=== PATIENT | male | born 1955 | race Caucasian/White ===

== ENCOUNTER 2020-08-04 08:17 | Outpatient (REF) | payer MEDICARE, SELFPAY ==
[2020-08-04 11:47] LABS: Estimated Average Glucose 103 mg/dL; Hemoglobin A1c % 5.2 %
== END 2020-08-04 08:18 | disposition home or self-care (01) ==
LOC: HO.MANLDS 08:17
PROVIDERS: PCP Internal Medicine; Visit Provider Internal Medicine
DX: R73.01 Impaired fasting glucose (principal)
CPT/HCPCS: 83036

== ENCOUNTER 2021-08-10 12:02 | Outpatient (REF) | payer MEDICARE, SELFPAY ==
[2021-08-10 15:11] LABS: CDiff Gene PCR NEGATIVE (Negative)
== END 2021-08-10 12:03 | disposition home or self-care (01) ==
LOC: HO.MANLNP 12:02
PROVIDERS: PCP Physician Assistant; Visit Provider Physician Assistant
DX: R19.7 Diarrhea, unspecified (principal)
CPT/HCPCS: 36415; 87493

== ENCOUNTER 2021-09-26 09:01 | Outpatient (REF) | payer MEDICARE, SELFPAY ==
[2021-09-26 10:51] LABS: Hematocrit 42.3 % (42.0-52.0); Hemoglobin 14.6 g/dl (14.0-18.0); Mean Corpuscular HGB Conc 34.5 g/dl (31.0-36.0); Mean Corpuscular Hemoglobin 31.7 pg (27.0-33.0); Mean Platelet Volume 9.5 fL (9.4-12.4); Platelet Count 198 X10*3/uL (160-400); Red Cell Distribution Width 11.8 % (11.0-16.0); White Blood Count 5.1 X10*3/uL (4.8-10.8)
[2021-09-26 11:01] LABS: Alanine Aminotransferase 43 U/L (0-40); Albumin Level 4.6 g/dL (3.5-5.0); Alkaline Phosphatase 62 U/L (39-117); Anion Gap 11 (12-20); Aspartate Amino Transferase 29 U/L (5-37); Bilirubin Total 0.5 mg/dL (0.0-1.0); Blood Urea Nitrogen 11 mg/dL (9-16); Calcium 9.5 mg/dL (8.4-10.2); Carbon Dioxide 31 mmol/L (22-29); Chloride 100 mmol/L (96-108); Cholesterol 181 mg/dL; Estimated Glomerular Filt Rate > 60; Glucose Fasting 116 mg/dL (60-99); HDL Cholesterol 45 mg/dL; LDL Cholesterol Calculated 109 mg/dl; Potassium 3.8 mmol/L (3.3-5.1); Sodium 138 mmol/L (135-145); Total Protein 7.2 g/dL (6.5-8.0); Triglycerides 138 mg/dL
== END 2021-09-26 09:02 | disposition home or self-care (01) ==
LOC: HO.MANLDS 09:01
PROVIDERS: PCP Internal Medicine; Visit Provider Internal Medicine
DX: E87.1 Hypo-osmolality and hyponatremia (principal); I10 Essential (primary) hypertension
CPT/HCPCS: 36415; 80053; 80061; 85027

== ENCOUNTER 2024-04-09 07:56 | Outpatient (REF) | payer MEDICARE, SELFPAY ==
[2024-04-09 13:02] LABS: MANUAL DIFF FLAG NO
[2024-04-09 13:25] LABS: Basophils Absolute Auto 0.1 X10*3/uL (0.0-0.2); Basophils Percent Auto 1.1 % (0-2); Eosinophils Absolute Auto 0.3 X10*3/uL (0.0-0.4); Eosinophils Percent Auto 6.2 % (0-4); Hematocrit 41.5 % (42.0-52.0); Hemoglobin 14.9 g/dl (14.0-18.0); Imm Gran Abs Auto 0.05 X10*3/uL (0.00-0.03); Imm Gran Pct Auto 1.1 % (0.0-0.4); Lymphocytes Absolute Auto 1.1 X10*3/uL (1.2-4.9); Lymphocytes Percent Auto 25.9 % (20-40); Mean Corpuscular HGB Conc 35.9 g/dl (31.0-36.0); Mean Corpuscular Hemoglobin 33.9 pg (27.0-33.0); Mean Corpuscular Volume 94.5 fL (80.0-98.0); Mean Platelet Volume 9.5 fL (9.4-12.4); Monocytes Absolute Auto 0.5 X10*3/uL (0.1-1.2); Neutrophils Absolute Auto 2.4 x10*3/uL (2.0-8.3); Neutrophils Percent Auto 54.7 % (45-73); Platelet Count 191 X10*3/uL (160-400); Red Blood Count 4.39 X10*6/uL (4.60-5.80); Red Cell Distribution Width 12.4 % (11.0-16.0); White Blood Count 4.4 X10*3/uL (4.8-10.8)
[2024-04-09 14:09] LABS: Alanine Aminotransferase 45 U/L (0-40); Albumin Level 4.8 g/dL (3.5-5.0); Alkaline Phosphatase 59 U/L (39-117); Anion Gap 14 (12-20); Aspartate Amino Transferase 38 U/L (5-37); Bilirubin Total 0.9 mg/dL (0.0-1.0); Blood Urea Nitrogen 13 mg/dL (9-16); Calcium 9.7 mg/dL (8.4-10.2); Carbon Dioxide 27 mmol/L (22-29); Chloride 102 mmol/L (96-108); Estimated Glomerular Filt Rate > 60; Ferritin 239 ng/mL (20-250); Glucose Random 95 mg/dL (60-115); Iron 182 mcg/dL (45-160); Magnesium 2.3 mg/dL (1.6-2.6); Percent Iron Saturation 57 % (15-50); Potassium 3.9 mmol/L (3.3-5.1); Sodium 139 mmol/L (135-145); Total Iron Binding Capacity 320 mcg/dL (228-428); Total Protein 7.3 g/dL (6.5-8.0); Unsaturated Iron Binding 138 ug/dL; Vitamin D 25-OH Total 54.8 ng/mL (>30)
[2024-04-09 14:34] LABS: Folate 10.6 ng/mL (> or = 4.0); Vitamin B12 462 pg/mL (200-900)
== END 2024-04-09 07:57 | disposition home or self-care (01) ==
LOC: HO.MANLDS 07:56
PROVIDERS: Visit Provider Physician Assistant
DX: R25.2 Cramp and spasm (principal)
CPT/HCPCS: 36415; 80053; 82306; 82607; 82728; 82746; 83540; 83735; 85025

== ENCOUNTER 2024-04-23 09:02 | Outpatient (REF) | payer MEDICARE, SELFPAY ==
[2024-04-23 13:21] LABS: MANUAL DIFF FLAG NO
[2024-04-23 13:30] LABS: Basophils Percent Auto 0.5 % (0-2); Eosinophils Absolute Auto 0.3 X10*3/uL (0.0-0.4); Eosinophils Percent Auto 4.6 % (0-4); Hematocrit 40.4 % (42.0-52.0); Hemoglobin 14.6 g/dl (14.0-18.0); Imm Gran Abs Auto 0.07 X10*3/uL (0.00-0.03); Imm Gran Pct Auto 1.2 % (0.0-0.4); Lymphocytes Absolute Auto 0.8 X10*3/uL (1.2-4.9); Lymphocytes Percent Auto 13.2 % (20-40); Mean Corpuscular HGB Conc 36.1 g/dl (31.0-36.0); Mean Platelet Volume 9.6 fL (9.4-12.4); Monocytes Absolute Auto 0.6 X10*3/uL (0.1-1.2); Monocytes Percent Auto 10.4 % (2-11); Neutrophils Absolute Auto 4.3 x10*3/uL (2.0-8.3); Neutrophils Percent Auto 70.1 % (45-73); Platelet Count 173 X10*3/uL (160-400); Red Cell Distribution Width 12.2 % (11.0-16.0); White Blood Count 6.1 X10*3/uL (4.8-10.8)
[2024-04-23 14:37] LABS: Iron 142 mcg/dL (45-160); Percent Iron Saturation 47 % (15-50); Total Iron Binding Capacity 305 mcg/dL (228-428); Unsaturated Iron Binding 163 ug/dL
[2024-04-23 14:42] LABS: Ferritin 210 ng/mL (20-250)
== END 2024-04-23 09:03 | disposition home or self-care (01) ==
LOC: HO.MANLDS 09:02
PROVIDERS: Visit Provider Physician Assistant
DX: E83.119 Hemochromatosis, unspecified (principal)
CPT/HCPCS: 36415; 82728; 83540; 85025

== ENCOUNTER 2024-05-19 15:47 | Outpatient (REF) | payer MEDICARE, SELFPAY ==
[2024-05-24 15:13] LABS: Testosterone, Free 37.6 pg/mL (35.0-155.0); Testosterone, Total 261 ng/dL (250-1100)
== END 2024-05-19 15:48 | disposition home or self-care (01) ==
LOC: HO.MANLDS 15:47
PROVIDERS: Visit Provider Internal Medicine
DX: F52.21 Male erectile disorder (principal)
CPT/HCPCS: 36415; 84402; 84403

== ENCOUNTER 2024-07-01 09:17 | Outpatient (REF) | payer MEDICARE, SELFPAY ==
[2024-07-06 00:14] LABS: Testosterone, Total 201 ng/dL (250-1100)
== END 2024-07-01 09:18 | disposition home or self-care (01) ==
LOC: HO.MANLDS 09:17
PROVIDERS: Visit Provider Internal Medicine
DX: R89.1 Abnormal level of hormones in specimens from other organs, systems and tissues (principal)
CPT/HCPCS: 36415; 84403

== ENCOUNTER 2025-04-17 08:53 | Outpatient (REF) | payer MEDICARE, SELFPAY ==
--- OUTSIDE RECORDS SUMMARY | 2025-04-17 08:57 | XMS_ITS | Data Portability ---
Author Organization [place] [facility], [facility] Address [address] [place] [address] Assessment No assessment recorded. Plan of Treatment Reminders Order Date Submit Date Provider Last Modified By Organization Details Last Modified Time Details Appointments NEW PATIENT 15 2024 10:15A M Keanu Deras MD Not available Not available Not available Lab None recorded . Referral None recorded . Procedures None recorded . Surgeries None recorded . Imaging None recorded . Medication Orders None recorded . Patient TargetsNo targets recorded. Patient Instructions Encounter Date Encounter Id Patient Instructions Last Modified By Organization Details Last Modified Time 02/15/2024 [id number] hip bursitis: care instructions Not available 02/15/2024 10:02:47 hip bursitis: exercises Not available 02/15/2024 10:02:47 Reason for Referral None Reported. Results Created Date Observation Date Name Description Value Unit Range Abnormal Flag Note LastModifiedBy Organization Detail LastModifiedTime 12/20/1912/21/2023 CBC/D /PLT W/ REFLE X IZABELA TIN WBC 6.1 x10e3 /uL 3.4-10 .8 Not Available [facility] ([facility]) [address] [place], [address], 12/21/2023 20:06:38 12/20/19 24 12/21/2023 CBC/D /PLT W/ REFLE X IZABELA TIN RBC 4.65 x10e6 /uL 4.14-5 .80 Not Available [facility] ([facility]) [address] [place], [address], 12/21/2023 20:06:38 12/20/19 24 12/21/2023 CBC/D /PLT W/ REFLE X IZABELA TIN hemoglobin 15.3 g/dL 13.0-1 7.7 Not Available [facility] ([facility]) [address] [facility], [place], [address], 12/21/2023 20:06:38 12/20/19 24 12/21/2023 CBC/D /PLT W/ REFLE X IZABELA TIN hematocrit 43.9 % 37.5-5 1.0 Not Available [facility] ([facility]) [address] [facility], [place], [address], 12/21/2023 20:06:38 12/20/19 24 12/21/2023 CBC/D /PLT W/ REFLE X IZABELA TIN MCV 94 fL 79-97 Not Available [facility] ([facility]) [address] [facility], [place], [address], 12/21/2023 20:06:38 12/20/19 24 12/21/2023 CBC/D /PLT W/ REFLE X IZABELA TIN MCH 32.9 pg 26.6-3 3.0 Not Available [facility] ([facility]) [address] [facility], [place], [address], 12/21/2023 20:06:38 12/20/19 24 12/21/2023 CBC/D /PLT W/ REFLE X IZABELA TIN MCHC 34.9 g/dL 31.5-3 5.7 Not Available [facility] ([facility]) [address] [facility], [place], [address], 12/21/2023 20:06:38 12/20/19 24 12/21/2023 CBC/D /PLT W/ REFLE X IZABELA TIN RDW 11.9 % 11.6-1 5.4 Not Available [facility] ([facility]) [address] [place], [address], 12/21/2023 20:06:38 12/20/19 24 12/21/2023 CBC/D /PLT W/ REFLE X IZABELA TIN platelets 195 x10e3 /uL 150-45 0 Not Available [facility] ([facility]) [address] [facility], [place], [address], 12/21/2023 20:06:38 12/20/19 24 12/21/2023 CBC/D /PLT W/ REFLE X IZABELA TIN neutrophils 64 % not estab. Not Available [facility] ([facility]) [address] [facility], [place], [address], 12/21/2023 20:06:38 12/20/19 24 12/21/2023 CBC/D /PLT W/ REFLE X IZABELA TIN lymphs 19 % not estab. Not Available [facility] ([facility]) [address] [facility], [place], [address], 12/21/2023 20:06:38 12/20/19 24 12/21/2023 CBC/D /PLT W/ REFLE X IZABELA TIN monocytes 9 % not estab. Not Available [facility] ([facility]) [address] [facility], [place], [address], 12/21/2023 20:06:38 12/20/19 24 12/21/2023 CBC/D /PLT W/ REFLE X IZABELA TIN eos 6 % not estab. Not Available [facility] ([facility]) [address] [facility], [place], [address], 12/21/2023 20:06:38 12/20/19 24 12/21/2023 CBC/D /PLT W/ REFLE X IZABELA TIN basos 1 % not estab. Not Available [facility] ([facility]) [address] [facility], [place], [address], 12/21/2023 20:06:38 12/20/19 24 12/21/2023 CBC/D /PLT W/ REFLE X IZABELA TIN immature cells CORE FILER Not Available [facility] ([facility]) [address] [facility], [place], [address], 12/21/2023 20:06:38 12/20/19 24 12/21/2023 CBC/D /PLT W/ REFLE X IZABELA TIN neutrophils (absolute) 4.0 x10e3 /uL 1.4-7. 0 Not Available [facility] ([facility]) [address] [facility], [place], [address], 12/21/2023 20:06:38 12/20/19 24 12/21/2023 CBC/D /PLT W/ REFLE X IZABELA TIN lymphs (absolute) 1.2 x10e3 /uL 0.7-3. 1 Not Available [facility] ([facility]) [address] [place], [address], 12/21/2023 20:06:38 12/20/19 24 12/21/2023 CBC/D /PLT W/ REFLE X IZABELA TIN monocytes(ab solute) 0.6 x10e3 /uL 0.1-0. 9 Not Available [facility] ([facility]) [address] [facility], [place], [address], 12/21/2023 20:06:38 12/20/19 24 12/21/2023 CBC/D /PLT W/ REFLE X IZABELA TIN eos (absolute) 0.3 x10e3 /uL 0.0-0. 4 Not Available [facility] ([facility]) [address] [place], [address], 12/21/2023 20:06:38 12/20/19 24 12/21/2023 CBC/D /PLT W/ REFLE X IZABELA TIN baso (absolute) 0.0 x10e3 /uL 0.0-0. 2 Not Available [facility] ([facility]) [address] [place], [address], 12/21/2023 20:06:38 12/20/19 24 12/21/2023 CBC/D /PLT W/ REFLE X IZABELA TIN immature granulocytes 1 % not estab. Not Available [facility] ([facility]) [address] [facility], [place], [address], 12/21/2023 20:06:38 12/20/19 24 12/21/2023 CBC/D /PLT W/ REFLE X IZABELA TIN immature grans (abs) 0.0 x10e3 /uL 0.0-0. 1 Not Available [facility] ([facility]) [address] [facility], [place], [address], 12/21/2023 20:06:38 12/20/19 24 12/21/2023 CBC/D /PLT W/ REFLE X IZABELA TIN NRBC CORE FILER Not Available [facility] ([facility]) [address] [facility], [place], [address], 12/21/2023 20:06:38 12/20/19 24 12/21/2023 CBC/D /PLT W/ REFLE X IZABELA TIN hematology comments: CORE FILER Not Available [facility] ([facility]) [address] [facility], [place], [address], 12/21/2023 20:06:38 12/20/19 24 12/21/2023 SEDIM ENTAT ION RATE- WESTE RGREN sedimentatio n rate-westerg anna 6 mm/HR 0-30 Not Available [facility] ([facility]) [address] [facility], [place], [address], 12/21/2023 20:06:38 12/20/19 24 12/21/2023 C-JAMES CTIVE PROTE IN, QUANT C-reactive protein, quant 4 mg/L 0-10 Not Available [facility] ([facility]) [address] [facility], [place], [address], 12/21/2023 20:06:39 05/30/20 24 09/17/2020 imagi ng/di agnos tic resul t No observ ation record ed. [email or web address] Not Available 05/03 06:35:18 05/30/20 24 11/15/2020 imagi ng/di agnos tic resul t No observ ation record ed. [email or web address] Not Available 05/03 06:35:23 Result Notes None recorded. 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 Status: 'A'; Not Available [facility] 4 11:28:29 Knee joint prosthesi s present 585671539824 Active 2019 Problem Code: Z96.652; Problem Code Type: ICD-10; Status: 'A'; Not Available [facility] 4 11:28:29 Idiopathi c osteoarth ritis 362269726 Active 2019 Problem Code: M17.11; Problem Code Type: ICD-10; Status: 'A'; Not Available [facility] 4 11:28:29 Instabili ty of right shoulder joint 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 Procedures Surgical History Date Name Laterality Status Provider Name and Address Organization Details Recorded Time 4 Hip Kenalog 1cc Injection, L/R completed Layla Montoya PA-C [address] [place] [address], [phone], [facility] 02/16/2024 13:46:42 4 Hip Kenalog 1cc Injection, L/R completed Layla Montoya PA-C [address], [place], [address], [facility] 01/03/2024 17:52:44 Imaging Results None recorded. Procedure Notes None recorded. Medical Equipment None Reported. Allergies No known drug allergies Medications Name Sig Start Date Stop Date Status Note LastModified by Organization Details LastModified Time trazodone 50 mg tablet TAKE 1 TABLET BY MOUTH EVERY DAY AT BEDTIME active Not Available Not Available No t Available lisinopril 20 mg-hydrochl orothiazide 12.5 mg tablet TAKE 2 TABLETS BY MOUTH EVERY DAY active Not Available Not Available No t Available atenolol 100 mg tablet TAKE 1 TABLET BY MOUTH EVERY DAY active Not Available Not Available No t Available famotidine 40 mg tablet TAKE 1 TABLET BY MOUTH EVERYDAY AT BEDTIME active Not Available Not Available No t Available sertraline 100 mg tablet TAKE 1 TABLET BY MOUTH EVERY DAY active Not Available Not Available No t Available clopidogrel 75 mg tablet TAKE 1 TABLET BY MOUTH EVERY DAY active Not Available Not Available No t Available amlodipine 10 mg tablet TAKE 1 TABLET BY MOUTH EVERY DAY active Not Available Not Available No t Available pseudoephed rine-guaife nesin ER 80-700 mg tablet,exte nded release 1 tablet every 4-6 hours as needed for pain 1 tablet 1/2 hour prior to exercises .DO NOT DRIVE WHILE ON THIS MEDICATIO N 2011 active Statu s: 'Curr ent'; Not Available Not Available Not Available rosuvastati n 20 mg tablet TAKE 1 TABLET BY MOUTH EVERYDAY AT BEDTIME active Not Available Not Available No t Available rosuvastati n 40 mg tablet TAKE 1 TABLET BY MOUTH DAILY active Not Available Not Available No t Available oxycodone HCl-oxycodo ne-ASA TAKE 1-2 TABS Q 4-6 HRS PRN PAIN 06/04 completed Statu s: 'Disc ontin ued'; Not Available Not Available Not Available Vitals Date Recorded Body height Body mass index (BMI) Body weight Provider Name and Address Organization Details Last Updated DateTime 01/03/2024 175.26 cm 34 kg/m2 427108.25 g dameon ruiz [facility] 01/03/2024 10:19:02 Date Recorded Body height Body mass index (BMI) Body weight Provider Name and Address Organization Details Last Updated DateTime 02/15/2024 175.26 cm 34 kg/m2 453141.25 g ALFREDO MORENO [facility] 02/15/2024 09:39:55 Social History None recorded. Functional Status None recorded. Mental Status None recorded. Family History Nothing Reported. Medical History No medical history recorded. Past Encounters Encounter ID Performer Location Encounter Start Date Encounter Closed Date Diagnosis/Indication Diagnosis SNOMED-CT Code Diagnosis ICD10 Code Diagnosis Note [id number] Layla Montoya PA-C [address] [place] [address] 01/03/2024 09:38:05 01/29/2024 20:37:38 Trochanteric bursitis of right hip [id number] 17288 M70.61 Hip joint prosthesis present 163255529 Z96.011 [id number] Layla Montoya PA-C [facility] [address] [place] [address] 02/15/2024 09:10:07 03/07/2024 14:14:47 Trochanteric bursitis of right hip 8415346575 34976 M70.61 Hip joint prosthesis present 206025982 Z96.641 Health Concerns Section Related Observation LastModified by Organization Detai ls LastModified Time None Recorded Concern Status LastModified by Organization Details LastModified Time None Recorded Advance Directives Directive None Recorded Payers Insurance Date Sequence Insurance Name Policy Number Policy Phipps Covered Member ID Phipps Member ID Guarantor Name 05/19/2024 1 [place] (MEDICARE REPLACEMENT PPO) [id number] Lorenzo Hunter Christopher [id number] Lorenzo White Notes Date Note Type Note Provider Name and Address Organization Details Recorded Time 01/03/2024 text/html I am seeing the patient today under the supervision of Dr. Tate who was available but who did not see the patient. HPI: Lorenzo presents to the office today in order to receive a cortisone injection for his right hip. He was last seen by one of my colleagues back in October. He is status post right total hip replacement by Dr. Jett in 2011. He describes his pain as being over the lateral hip. Symptoms are most significant with prolonged sitting, getting up from a seated position, and climbing stairs. Deneis any groin pain. Past family, medical, social history and review of systems have been reviewed and updated on the medical history sheet saved to the patient's chart. Review of systems is negative except as noted above and/or on the medical history sheet. Examination: The patient is well appearing and in no apparent distress. Alert and oriented x3. Right hip exam demonstrates skin intact with normal musculature and well-healed surgical scar. There is no erythema or lesions. He has tenderness to palpation overlying the right greater trochanter. No pain with passive motion of the hip. No pain against resisted hip flexion, abduction, adduction. Neurovascularly intact. Peripheral vascular, lymphatic examination, skin, neurological, coordination, sensation are within normal limits unless otherwise noted above. X-rays performed previously have been reviewed. Impression: Right hip greater trochanteric bursitis status post right total hip arthroplasty 2011 Plan: The patient was thoroughly counseled today regarding their hip condition, its natural history, and the treatment options including physical therapy, medication, and a corticosteroid injection. The patient is interested in receiving an injection with corticosteroid. Right trochanteric region was prepped sterilely, and injection was administered at the point of maximum tenderness utilizing 40mg of Kenalog and 4cc of 0.25% Marcaine. The patient tolerated the procedure well. Post-injection precautions were discussed. Physical therapy was discussed. I will see him back in the office in 6 weeks for a recheck. All questions answered. Layla Montoya PA-C [address] [place] [address] [address], [place], [address], [facility] [place] [facility] 01/03/2024 17:53:27 02/15/2024 text/html I am seeing the patient today under the supervision of Dr. Thakkar who was available but who did not see the patient.HPI: Lorenzo presents to the office today for a recheck his right hip. He was seen by myself approximately 6 weeks ago. He is status post right total hip replacement by Dr. Jett in 2011. He describes his pain as being over the lateral hip. Symptoms are most significant with prolonged sitting, getting up from a seated position, and climbing stairs. Ronald any groin pain. He received a cortisone injection at his last visit for bursitis which provided him with relief but did not completely eliminate his symptoms. Past family, medical, social history and review of systems have been reviewed and updated on the medical history sheet saved to the patient's chart. Review of systems is negative except as noted above and/or on the medical history sheet.Examination: The patient is well appearing and in no apparent distress. Alert and oriented x3. Right hip exam demonstrates skin intact with normal musculature and well-healed surgical scar. There is no erythema or lesions. He has tenderness to palpation overlying the right greater trochanter. No pain with passive motion of the hip. No pain against resisted hip flexion, abduction, adduction. Neurovascularly intact. Peripheral vascular, lymphatic examination, skin, neurological, coordination, sensation are within normal limits unless otherwise noted above.X-rays performed previously have been reviewed.Impression: Right hip greater trochanteric bursitis status post right total hip arthroplasty 2011Plan: The patient was thoroughly counseled today regarding their hip condition, its natural history, and the treatment options including physical therapy, medication, and a corticosteroid injection. The patient is interested in receiving an injection with corticosteroid. Right trochanteric region was prepped sterilely, and injection was administered at the point of maximum tenderness utilizing 40mg of Kenalog and 4cc of 0.25% Marcaine. The patient tolerated the procedure well. Post-injection precautions were discussed. He prefers to hold off on formal physical therapy. A home stretching program has been provided. I will see him back in the office in 3 months for repeat injection if needed. All questions answered.+ KRISTEN Melendez-Nazanin [address] [facility] [address], [place], [address], [facility] [place] [facility] 02/16/2024 13:47:43
--- OUTSIDE RECORDS SUMMARY | 2025-04-17 08:57 | XMS_ITS | Encounter Summary ---
Author Organization [facility] [place] Address [address] [place] [address] [place] [address] Phone Care Team Providers Care Production Line Operator Name Role Phone Van Mckeon Primary Care Provider [phone] Encounter Details Date Type Department Care Team (Late st Contact Info) Description 08/28/2017 Transcribe Orders [facility] [address] [place] [address] [id number] Tashi Hong MD [address] [place] [phone] Encounter for hydration prior to CT scan (Primary Dx) Social History Tobacco Use Types Packs/Day Years Used Date Smoking Tobacco: Never Assessed Sex and Gender Information Value Date Recorded Sex Assigned at Not on file Legal Sex Male 9:54 PM EDT Gender Identity Not on file Sexual Orientation Not on file documented as of this encounter Plan of Treatment Not on file documented as of this encounter Procedures Procedure Name Priority Date/Time Associated Diagnosis Comments CREATININE/EGFR Routine 08/28/2017 9:22 AM EST Encounter for hydration prior to CT scan BUN Routine 08/28/2017 9:22 AM EST Encounter for hydration prior to CT scan documented in this encounter Results * Creatinine/eGFR (08/28/2017 9:22 AM EST) CREATININE 0.70 0.5 - 1.5 mg/dL [facility] EGFR >60 >60 mL/min/1.7 3m2 [facility] Comment:Abnormal if <60. If patient is -Greek, multiply the result by 1.21. Blood 08/28/2017 9:22 AM EST 08/28/2017 9:26 AM EST us Tashi Hong MD LAB BLOOD ORDERABLES Sheila l Result Performing Organization Address City/[facility]/ZIP Co de Phone Number [address] [address] * BUN (08/28/2017 9:22 AM EST) BUN 11 6 - 19 mg/dL [facility] Blood 08/28/2017 9:22 AM EST 08/28/2017 9:26 AM EST Tashi Hong MD LAB BLOOD ORDERABLES Sheila l Result Performing Organization Address [facility] Co de Phone Number [address] [address] documented in this encounter Visit Diagnoses Diagnosis Encounter for hydration prior to CT scan- Primary documented in this encounter Additional Health Concerns Infection Onset Date Last Indicated Resolved Time CoV-Risk 10/13/2024 10/13/2024 10/24/2024 1:24 AM EST documented as of this encounter Care Teams Production Line Operator Relationship Specialty Start Date End Date Van Mckeon DO [email or web address] PCP - General 07/16/17 documented as of this encounter Additional Source Comments The information contained in this document represents components of the legal health record. It is not the complete legal health record.[facility]
[2025-04-17 09:12] LABS: MANUAL DIFF FLAG NO
[2025-04-17 10:28] LABS: Hematocrit 41.1 % (42.0-52.0); Hemoglobin 14.9 g/dl (14.0-18.0); Imm Gran Abs Auto 0.05 X10*3/uL (0.00-0.03); Imm Gran Pct Auto 0.8 % (0.0-0.4); Lymphocytes Absolute Auto 0.9 X10*3/uL (1.2-4.9); Mean Corpuscular HGB Conc 36.3 g/dl (31.0-36.0); Mean Corpuscular Hemoglobin 32.6 pg (27.0-33.0); Mean Corpuscular Volume 89.9 fL (80.0-98.0); NRBC Abs Auto 0.000 X10*3/uL (0.0-0.012); NRBC Pct Auto 0.0 /100WBC (0.0-0.2); Platelet Count 183 X10*3/uL (160-400); Red Blood Count 4.57 X10*6/uL (4.60-5.80); White Blood Count 6.4 X10*3/uL (4.8-10.8)
[2025-04-17 11:21] LABS: Alanine Aminotransferase 55 U/L (0-40); Albumin Level 5.1 g/dL (3.5-5.0); Alkaline Phosphatase 68 U/L (39-117); Anion Gap 13 (12-20); Aspartate Amino Transferase 44 U/L (5-37); Blood Urea Nitrogen 14 mg/dL (9-16); Calcium 9.8 mg/dL (8.4-10.2); Carbon Dioxide 28 mmol/L (22-29); Chloride 102 mmol/L (96-108); Cholesterol 116 mg/dL (<200); Estimated Glomerular Filt Rate > 60; HDL Cholesterol 44 mg/dL (>40); Potassium 4.0 mmol/L (3.3-5.1); Sodium 139 mmol/L (135-145); Total Protein 7.5 g/dL (6.5-8.0); Triglycerides 115 mg/dL (<150)
[2025-04-17 11:23] LABS: Prostate Specific Antigen 0.54 ng/mL (<0.05-4.0)
== END 2025-04-17 08:54 | disposition home or self-care (01) ==
LOC: HO.LAB 08:53
PROVIDERS: PCP Internal Medicine; Visit Provider Internal Medicine
DX: E78.00 Pure hypercholesterolemia, unspecified (principal)
CPT/HCPCS: 36415; 80053; 80061; 84153; 85025

== ENCOUNTER 2025-04-29 08:41 | Outpatient (REF) | payer MEDICARE, SELFPAY ==
--- OUTSIDE RECORDS SUMMARY | 2025-04-29 08:57 | XMS_ITS | Encounter Summary ---
Author Organization [facility] Address [address] [place] [address] [place] [address] Phone Care Team Providers Care Sales Administration Specialist Name Role Phone Van Mckeon Primary Care Provider [phone] Encounter Details Date Type Department Care Team (Late st Contact Info) Description 08/28/2017 Transcribe Orders [facility] [address] [place] [address] [phone] Tashi Hong MD [address] [place] [phone] Encounter for hydration prior to CT [...] EST) CREATININE 0.70 0.5 - 1.5 mg/dL [facility] EGFR >60 >60 mL/min/1.7 3m2 [facility] Comment:Abnormal if <60. If patient is -Azerbaijani, multiply the result by 1.21. Blood 08/28/2017 9:22 AM EST 08/28/2017 9:26 AM EST us Tashi Hong MD LAB BLOOD ORDERABLES Sheila l Result Performing Organization Address City/[facility]/ZIP Co de Phone Number [address] [address] * BUN (08/28/2017 9:22 AM EST) BUN 11 6 - 19 mg/dL [facility] Blood 08/28/2017 9:22 AM EST 08/28/2017 9:26 AM EST Tashi Hong MD LAB BLOOD ORDERABLES Sheila l Result Performing Organization Address [facility] Co de Phone Number [address] [address] documented in this encounter Visit Diagnoses Diagnosis Encounter for hydration prior to CT scan- Primary documented in this encounter Additional Health Concerns Infection Onset Date Last Indicated Resolved Time CoV-Risk 10/13/2024 10/13/2024 10/24/2024 1:24 AM EST documented as of this encounter Care Teams Sales Administration Specialist Relationship Specialty Start Date End Date Van Mckeon DO [email or web address] PCP - General 07/16/17 documented as of this encounter Additional Source Comments The information contained in this document represents components of the legal health record. It is not the complete legal health record.[facility]
== END 2025-04-29 08:42 | disposition home or self-care (01) ==
LOC: HO.MANLDS 08:41
PROVIDERS: Visit Provider Internal Medicine
DX: R89.1 Abnormal level of hormones in specimens from other organs, systems and tissues (principal)
CPT/HCPCS: 36415; 84403

== ENCOUNTER 2025-06-09 09:42 | Outpatient (REF) | payer MEDICARE, SELFPAY ==
--- OUTSIDE RECORDS SUMMARY | 2024-10-13 12:59 | XMS_ITS | Encounter Summary ---
Author Organization [facility] Address [address] [employer] [facility] [address] [place] [phone] Phone Care Team Providers Care Financial Planning Analyst Name Role Phone Van Mckeon Gurpreet PEREIRA Primary Care Provider [phone] Encounter Details Date Type Department Care Team (Late st Contact Info) Description 10/13/2024 11:59 AM [facility] Hospital Encounter [facility] [address] [place] [phone] Malika Bonilla CNP [address] [place] [address] [email or web address] Social History Tobacco Use Types Packs/Day Years [...] clinician's provided indication for this examination in [facility]: Cough; X 5 -6 weeks COMPARISON: None FINDINGS: Devices/Tubes/Lines: None. Lungs: Low lung volumes. No focal consolidation or pulmonary edema. Pleura: No pleural effusion or pneumothorax. Heart/Mediastinum: Mild cardiomegaly. Aortic arch calcification. Bones/Soft Tissues: Mild thoracic spine degenerative changes. Procedure Note Luis Angel Mayers MD, PhD - 10/13/2024 XR CHEST PA AND LATERAL 2 VIEWS Referring clinician's provided indication for this examination in [facility]:Cough; X 5 -6 weeks COMPARISON: None FINDINGS: Devices/Tubes/Lines: None. Lungs: Low lung volumes. No focal consolidation or pulmonary edema. Pleura: No pleural effusion or pneumothorax. Heart/Mediastinum: Mild cardiomegaly. Aortic arch calcification. Bones/Soft Tissues: Mild thoracic spine degenerative changes. IMPRESSION: No acute abnormality. us Malika Bonilla HEATING AND REFRIGERATION INSPECTOR IMG XR CHEST Final Resul t documented in this encounter Visit Diagnoses Not on filedocumented in this encounter Additional Health Concerns Infection Onset Date Last Indicated Resolved Time CoV-Risk 10/13/2024 10/13/2024 10/24/2024 1:24 AM EST documented as of this encounter Care Teams Financial Planning Analyst Relationship Specialty Start Date End Date Van Mckeon DO [email or web address] PCP - General 07/16/17 documented as of this encounter Additional Source Comments The information contained in this document represents components of the legal health record. It is not the complete legal health record.[facility]
--- OUTSIDE RECORDS SUMMARY | 2025-06-09 11:22 | XMS_ITS | Clinical Summary ---
Author Organization [facility] Address [address] [facility] [address] [place] [address] Phone Care Team Providers Care Industrial Design Engineer Name Role Phone Van Mckeon Primary Care Provider [phone] Allergies No known active allergies Medications Medication-Free Text Zolpidem Tartrate Active Medication-Free Text Ranitidine Active SIMVASTATIN ORAL Take 10 mg by mouth daily. Active OMEPRAZOLE ORAL Acti ve SERTRALINE HCL (SERTRALINE ORAL) Take 1 tablet by mouth daily. Active MELOXICAM ORAL Activ e amLODIPine (NORVASC) 10 MG tablet Take 1 tablet by mouth daily. Active amitriptyline (ELAVIL) 25 MG tablet Take 1 tablet by mouth nightly. 1 Active lisinopril-hydroC HLOROthiazide (PRINZIDE,ZESTORE TIC) 20-12.5 mg per tablet Take 2 tablets by mouth daily. 1 Active famotidine (PEPCID) 40 MG tablet Take 40 mg by mouth daily. Active therapeutic multivitamin tablet Take 1 tablet by mouth daily. Active omega-3 fatty acids-fish oil 340-1,000 mg Cap Take 1 capsule by mouth daily. Active aspirin 81 mg chewable tablet Take 81 mg by mouth daily. Active COQ10, UBIQUINOL, ORAL Take 1 tablet by mouth daily. Active clopidogrel (PLAVIX) 75 mg tablet Take 75 mg by mouth daily. Active rosuvastatin (CRESTOR) 40 MG tablet Take 40 mg by mouth daily. Active atenolol (TENORMIN) 100 MG tablet Take 100 mg by mouth daily. Active traZODone (DESYREL) 50 MG tablet Take 50 mg by mouth nightly at bedtime. 4 Active Active Problems Problem Noted Date Diagnosed Date Carotid bruit present 10/13/2024 Chronic lower back pain 10/13/2024 Eczema of hand 10/13/2024 GERD (gastroesophageal reflux disease) Obesity with body mass index 30 or greater 10/13 ARBEN on CPAP 10/13/2024 Right bundle branch block (RBBB) 10/13/2024 OA (osteoarthritis) 10/13/2024 Benign esophageal stricture 04/24/2018 Deep vein thrombosis (DVT) of iliofemoral vein 0 04/24/2018 Depressive disorder 04/24/2018 Degeneration of lumbar intervertebral disc 04/24 Esophagitis 04/24/2018 Hypercholesterolemia 04/24/2018 Hypertension 04/24/2018 DDD (degenerative disc disease), cervical 2017 Peripheral vascular disease 03/07/2018 Immunizations No known immunizations Social History Tobacco Use Types Packs/Day Years [...] on file Sexual Orientation Not on file Last Filed Vital Signs Vital Sign Reading Time Taken Comments Blood Pressure 165/85 10/13/2024 11:42 AM EST Pulse 62 10/13/2024 11:42 AM EST Temperature 36.7 C (98 F) 10/13/2024 11:42 AM EST Respiratory Rate 20 10/13/2024 11:42 AM EST Oxygen Saturation 97% 10/13/2024 11:42 AM EST Inhaled Oxygen Concentration - - Weight 99.8 kg (220 lb) 05/19/2020 8:55 AM EDT Height 172.7 cm (5' 8 ) 05/19/2020 8:55 AM EDT Body Mass Index 33.45 05/19/2020 8:55 AM EDT Plan of Treatment Health Maintenance Due Date Last Done Comments Adult Td,Tdap Booster 1956 LIPID PANEL 1956 POTASSIUM LEVEL 1956 DEPRESSION SCREENING 1968 SMOKING Hx and SMOKELESS TOBACCO SCREENING 1969 HEPATITIS C SCREENING 1974 COLOGUARD 2001 COLONOSCOPY 2001 COLORECTAL CANCER SCREENING 2001 FIT TEST 2001 FOBT 2001 SIGMOIDOSCOPY 2001 VIRTUAL COLONOSCOPY 2001 CREATININE LEVEL 08/28/2018 08/28/2017 ZOSTER VACCINES (2 of 2) 04/14/2019 02/17/2019 ABDOMINAL AORTIC ANEURYSM (AAA) SCREENING 2021 BLOOD PRESSURE 04/12/2025 10/13/2024 INFLUENZA VACCINE (#1) 2025 , 06/29/2023, 07/11/2022, Additional history exists COVID-19 VACCINE ( season) 2025 06/27/2024, 06/29/2023, 07/11/2022, Additional history exists PNEUMOCOCCAL VACCINES (50+ years) Completed 06/15/2023, 10/02/2018, 09/19/2017 RSV VACCINE Completed 06/15/2023 HEPATITIS A VACCINES Aged Out No long er eligible based on patient's age to complete this topic HIB VACCINES Aged Out No longer eligi ble based on patient's age to complete this topic MENINGOCOCCAL VACCINES (ACWY) Aged Out No longer eligible based on patient's age to complete this topic MENINGOCOCCAL VACCINES (B) Aged Out N o longer eligible based on patient's age to complete this topic Medical Devices Implanted Type Area Sheet Sorter Device Identifier Shelf Expiration Date Model / Serial / Lot Prosthetic Joint Prosthetic Joint Bilatera l: Hip Prosthetic Joint Prosthetic Joint Bilatera l: Knee Procedures Procedure Name Priority Date/Time Associated Diagnosis Comments CREATININE/EGFR Routine 08/28/2017 9:22 AM EST Encounter for hydration prior to CT scan from Last 3 Months or Most Recently Relevant to Health Maintenance Results * Creatinine/eGFR (08/28/2017 9:22 AM EST) CREATININE 0.70 0.5 - 1.5 mg/dL [facility] EGFR >60 >60 mL/min/1.7 3m2 [facility] Comment:Abnormal if <60. If patient is -[place], multiply the result by 1.21. Blood 08/28/2017 9:22 AM EST 08/28/2017 9:26 AM EST us Tashi Hong MD LAB BLOOD ORDERABLES Sheila macdonald Result Performing Organization Address City/State/[facility] Co de Phone Number [address] [address] from Last 3 Months or Most Recently Relevant to Health Maintenance Insurance MEDICARE PPO BLUE REPLACEMENT MEDICARE PPO BLUE REPLACEMENT MEDICARE PPO BLUE REPLACEMENT MEDICARE PPO BLUE REPLACEMENT MEDICARE PPO BLUE REPLACEMENT MEDICARE PPO BLUE REPLACEMENT MEDICARE PPO BLUE REPLACEMENT [place] MEDICARE PPO BLUE REPLACEMENT Care Teams Industrial Design Engineer Relationship Specialty Start Date End Date Van Mckeon DO [email or web address] PCP - General 07/16/17 Additional Source Comments The information contained in this document represents components of the legal health record. It is not the complete legal health record.[facility]
--- OUTSIDE RECORDS SUMMARY | 2025-06-09 11:22 | XMS_ITS | Encounter Summary ---
Author Organization [facility] Address [address] [address] Phone Care Team Providers Care Residential Finish Carpenter Name Role Phone Van Mckeon DO Primary Care Provider Reason for Referral * Physical Therapy (Routine) - Closed Specialty Diagnoses / Procedures Referred By Contac t Referred To Contact Physical Therapy Diagnoses Encounter for rehabilitation System, Provider Not In, PhD [id number] [place] [address] [address] [place] [address] Phone: tel: Referral ID Status Reason Start Date Expiration Date Visits Re quested Visits Authorized [id number] Closed 07/29/2018 09/30/2018 92 [phone] Encounter Details Date Type Department Care Team (Late st Contact Info) Description 06/27/2018 Transcribe Orders [facility] [address] [place] [address] Van Mckeon DO [address] [facility] [place] [address] [email or web address] Encounter for rehabilitation (Primary Dx) Social History Tobacco Use Types Packs/Day Years Used Date Smoking Tobacco: Never Assessed Sex and Gender Information Value Date Recorded Sex Assigned at Not on file Legal Sex Male 9:54 PM EDT Gender Identity Not on file Sexual Orientation Not on file documented as of this encounter Plan of Treatment Scheduled Referrals Name Type Priority Associated Diagnoses Orde r Schedule Ambulatory referral to [facility] Physical Therapy Outpatient Referral Routine Encounter for rehabilitation Ordered: 06/27/2018 documented as of this encounter Visit Diagnoses Diagnosis Encounter for rehabilitation- Primary documented in this encounter Additional Health Concerns Infection Onset Date Last Indicated Resolved Time CoV-Risk 10/13/2024 10/13/2024 10/24/2024 1:24 AM EST documented as of this encounter Care Teams Residential Finish Carpenter Relationship Specialty Start Date End Date Van Mckeon DO [email or web address] PCP - General 07/16/17 documented as of this encounter Additional Source Comments The information contained in this document represents components of the legal health record. It is not the complete legal health record.[facility]
--- OUTSIDE RECORDS SUMMARY | 2025-06-09 11:22 | XMS_ITS | Encounter Summary ---
Author Organization [facility] Address [address] [place] [address] [place] [address] Phone Care Team Providers Care Co Founder And President Name Role Phone Van Mckeon Primary Care Provider [phone] Encounter Details Date Type Department Care Team (Late st Contact Info) Description 08/28/2017 Transcribe Orders [facility] [address] [place] [address] [id number] Tashi Hong MD [address] [place] [phone] Encounter for hydration prior to CT [...] EST) CREATININE 0.70 0.5 - 1.5 mg/dL [facility] EGFR >60 >60 mL/min/1.7 3m2 [facility] Comment:Abnormal if <60. If patient is -Lao, multiply the result by 1.21. Blood 08/28/2017 9:22 AM EST 08/28/2017 9:26 AM EST us Tashi Hong MD LAB BLOOD ORDERABLES Sheila l Result Performing Organization Address City/[facility]/ZIP Co de Phone Number [address] [address] * BUN (08/28/2017 9:22 AM EST) BUN 11 6 - 19 mg/dL [facility] Blood 08/28/2017 9:22 AM EST 08/28/2017 9:26 AM EST Tashi Hong MD LAB BLOOD ORDERABLES Sheila l Result Performing Organization Address [facility] Co de Phone Number [address] [address] documented in this encounter Visit Diagnoses Diagnosis Encounter for hydration prior to CT scan- Primary documented in this encounter Additional Health Concerns Infection Onset Date Last Indicated Resolved Time CoV-Risk 10/13/2024 10/13/2024 10/24/2024 1:24 AM EST documented as of this encounter Care Teams Co Founder And President Relationship Specialty Start Date End Date Van Mckeon DO [email or web address] PCP - General 07/16/17 documented as of this encounter Additional Source Comments The information contained in this document represents components of the legal health record. It is not the complete legal health record.[facility]
--- OUTSIDE RECORDS SUMMARY | 2025-06-09 11:23 | XMS_ITS | Encounter Summary ---
Author Organization [facility] Address [address] [address] Phone Care Team Providers Care Biomedical Manager Name Role Phone Van Mckeon Gurpreet PEREIRA Primary Care Provider [phone] Reason for Referral * Physical Therapy (Routine) - Closed Specialty Diagnoses / Procedures Referred By Berhane t Referred To Contact Physical Therapy Diagnoses Encounter for rehabilitation System, Provider Not In, PhD [id number] [place] [address] Phone: tel: Referral ID Status Reason Start Date Expiration Date Visits Re quested Visits Authorized [id number] Closed 10/01/2017 09/30/2018 99 [phone] Encounter Details Date Type Department Care Team (Latest Contact Info) Description 08/16/2017 Transcribe Orders [facility] [address] [place] [phone] Ranjeet Jett MD [address] [place] [phone] Encounter for rehabilitation (Primary Dx) Social History [...] Diagnoses Orde r Schedule Ambulatory referral to [facility] Physical Therapy Outpatient Referral Routine Encounter for rehabilitation Ordered: 08/16/2017 documented as of this encounter Visit Diagnoses Diagnosis Encounter for rehabilitation- Primary documented in this encounter Additional Health Concerns Infection Onset Date Last Indicated Resolved Time CoV-Risk 10/13/2024 10/13/2024 10/24/2024 1:24 AM EST documented as of this encounter Care Teams Biomedical Manager Relationship Specialty Start Date End Date Van Mckeon DO [email or web address] PCP - General 07/16/17 documented as of this encounter Additional Source Comments The information contained in this document represents components of the legal health record. It is not the complete legal health record.[facility]
--- OUTSIDE RECORDS SUMMARY | 2025-06-09 11:23 | XMS_ITS | Encounter Summary ---
Author Organization [facility] Address [address] [place] [address] Phone Care Team Providers Care Quarry Worker Name Role Phone Van Mckeon DO Primary Care Provider [phone] Encounter Details Date Type Department Care Team (Late st Contact Info) Description 09/25/2017 Documentation [facility] [address] [place] [address] Gretchen Vang, PT [email or web address] Social History Tobacco Use Types Packs/Day Years Used Date Smoking Tobacco: Never Assessed Sex and Gender Information Value Date Recorded Sex Assigned at Not on file Legal Sex Male 9:54 PM EDT Gender Identity Not on file Sexual Orientation Not on file documented as of this encounter Plan of Treatment Not on file documented as of this encounter Visit Diagnoses Not on filedocumented in this encounter Additional Health Concerns Infection Onset Date Last Indicated Resolved Time CoV-Risk 10/13/2024 10/13/2024 10/24/2024 1:24 AM EST documented as of this encounter Care Teams Quarry Worker Relationship Specialty Start Date End Date Van Mckeon DO PCP - General 07/16/17 documented as of this encounter Additional Source Comments The information contained in this document represents components of the legal health record. It is not the complete legal health record.[facility]
--- OUTSIDE RECORDS SUMMARY | 2025-06-09 11:23 | XMS_ITS | Encounter Summary ---
Author Organization [facility] Address [address] [place] [address] Phone Care Team Providers Care Brand Coordinator Name Role Phone Van Mckeon DO Primary Care Provider [phone] Encounter Details Date Type Department Care Team (Latest Contact Info) Description 08/15/2021 Transcribe Orders Virtual Department [address] [place] [address] Gillian Vernon PA [address] [place] [address] [place] [address] Diarrhea, unspecified type (Primary Dx) Social History Tobacco Use Types Packs/Day Years Used Date Smoking Tobacco: Former Cigarettes Smokeless Tobacco: Never Comments:quit 30 yrs ago Alcohol Use Standard Drinks/Week Comments Yes 1 (1 standard drink = 0.6 oz pur e alcohol) daily Sex and Gender Information Value Date Recorded Sex Assigned at Not on file Legal Sex Male 9:54 PM EDT Gender Identity Not on file Sexual Orientation Not on file documented as of this encounter Plan of Treatment Not on file documented as of this encounter Visit Diagnoses Diagnosis Diarrhea, unspecified type- Primary documented in this encounter Additional Health Concerns Infection Onset Date Last Indicated Resolved Time CoV-Risk 10/13/2024 10/13/2024 10/24/2024 1:24 AM EST documented as of this encounter Care Teams Brand Coordinator Relationship Specialty Start Date End Date Van Mckeon DO PCP - General 07/16/17 documented as of this encounter Additional Source Comments The information contained in this document represents components of the legal health record. It is not the complete legal health record.[facility]
--- OUTSIDE RECORDS SUMMARY | 2025-06-09 11:23 | XMS_ITS | Encounter Summary ---
Author Organization [facility] Address [address] [facility] [address] [place] [address] Phone Care Team Providers Care Internet Programmer Name Role Phone Van Mckeon DO Primary Care Provider [phone] Encounter Details Date Type Department Care Team (Late st Contact Info) Description 05/21/2020 Procedure Pass [facility] Endoscopy Admitting Dept Virtual Department [address] [place] [address] Social History Tobacco Use Types Packs/Day Years [...] documented as of this encounter Care Teams Internet Programmer Relationship Specialty Start Date End Date Van Mckeon DO PCP - General 07/16/17 documented as of this encounter Additional Source Comments The information contained in this document represents components of the legal health record. It is not the complete legal health record.[facility]
[2025-06-10 06:09] LABS: Follicle Stimulating Hormone 9.1 mIU/mL (1.4-12.8)
[2025-06-13 15:44] LABS: Testosterone, Free 32.6 pg/mL (35.0-155.0)
== END 2025-06-09 09:43 | disposition home or self-care (01) ==
LOC: HO.MANLDS 09:42
PROVIDERS: Visit Provider Internal Medicine
DX: R89.1 Abnormal level of hormones in specimens from other organs, systems and tissues (principal)
CPT/HCPCS: 36415; 83001; 83002; 84270; 84402; 84403

== ENCOUNTER 2025-07-03 14:01 | Outpatient (REF) | payer MEDICARE, SELFPAY ==
--- OUTSIDE RECORDS SUMMARY | 2024-10-13 12:59 | XMS_ITS | Encounter Summary ---
Author Organization [facility] Address [address] [facility] [address] [place] [phone] Phone Care Team Providers Care Electrical Engineer Name Role Phone Van Mckeon Gurpreet PEREIRA Primary Care Provider [phone] Encounter Details Date Type Department Care Team (Late st Contact Info) Description 10/13/2024 11:59 AM [facility] Hospital Encounter [facility] [address] [place] [phone] Malika Bonilla CNP [address] [place] [address] [email or web address] Social History Tobacco Use Types Packs/Day Years [...] clinician's provided indication for this examination in [facility]: Cough; X 5 -6 weeks COMPARISON: [...] clinician's provided indication for this examination in [facility]:Cough; X 5 -6 weeks COMPARISON: None FINDINGS: Devices/Tubes/Lines: None. Lungs: Low lung volumes. No focal consolidation or pulmonary edema. Pleura: No pleural effusion or pneumothorax. Heart/Mediastinum: Mild cardiomegaly. Aortic arch calcification. Bones/Soft Tissues: Mild thoracic spine degenerative changes. IMPRESSION: No acute abnormality. us Malika Bonilla DIRECTOR OF INFECTION CONTROL IMG XR CHEST Final Resul t documented in this encounter Visit Diagnoses Not on filedocumented in this encounter Additional Health Concerns Infection Onset Date Last Indicated Resolved Time CoV-Risk 10/13/2024 10/13/2024 10/24/2024 1:24 AM EST documented as of this encounter Care Teams Electrical Engineer Relationship Specialty Start Date End Date Van Mckeon DO [email or web address] PCP - General 07/16/17 documented as of this encounter Additional Source Comments The information contained in this document represents components of the legal health record. It is not the complete legal health record.[facility]
--- OUTSIDE RECORDS SUMMARY | 2025-07-03 14:14 | XMS_ITS | Clinical Summary ---
Author Organization [facility] Address [address] [facility] [address] [place] [address] Phone Care Team Providers Care Records Coordinator Name Role Phone Van Mckeon Primary Care Provider [phone] Allergies No known active allergies Medications Medication-Free [...] this topic Medical Devices Implanted Type Area Town Justice Device Identifier Shelf Expiration Date Model / [...] EST) CREATININE 0.70 0.5 - 1.5 mg/dL [facility] EGFR >60 >60 mL/min/1.7 3m2 [facility] Comment:Abnormal if <60. If patient is -[place], multiply the result by 1.21. Blood 08/28/2017 9:22 AM EST 08/28/2017 9:26 AM EST us Tashi Hong MD LAB BLOOD ORDERABLES Sheila macdonald Result Performing Organization Address City/State/[facility] Co de Phone Number [address] [address] from Last 3 Months or Most Recently Relevant to Health Maintenance Insurance MEDICARE PPO BLUE REPLACEMENT MEDICARE PPO BLUE REPLACEMENT MEDICARE PPO BLUE REPLACEMENT MEDICARE PPO BLUE REPLACEMENT MEDICARE PPO BLUE REPLACEMENT MEDICARE PPO BLUE REPLACEMENT MEDICARE PPO BLUE REPLACEMENT [place] MEDICARE PPO BLUE REPLACEMENT Care Teams Records Coordinator Relationship Specialty Start Date End Date Van Mckeon DO [email or web address] PCP - General 07/16/17 Additional Source Comments The information contained in this document represents components of the legal health record. It is not the complete legal health record.[facility]
--- OUTSIDE RECORDS SUMMARY | 2025-07-03 14:14 | XMS_ITS | Encounter Summary ---
Author Organization [facility] Address [address] [place] [address] [place] [address] Phone Care Team Providers Care Print Shop Manager Name Role Phone Van Mckeon Primary Care Provider [phone] Encounter Details Date Type Department Care Team (Late st Contact Info) Description 08/28/[address] [facility] [address] [place] [address] [phone] Tashi Hong MD [address] [place] [phone] Encounter for hydration prior to CT [...] EST) CREATININE 0.70 0.5 - 1.5 mg/dL [facility] EGFR >60 >60 mL/min/1.7 3m2 [facility] Comment:Abnormal if <60. If patient is -[place]isian, multiply the result by 1.21. Blood 08/28/2017 9:22 AM EST 08/28/2017 9:26 AM EST us Tashi Hong MD LAB BLOOD ORDERABLES Sheila l Result Performing Organization Address City/[facility]/ZIP Co de Phone Number [address] [address] * BUN (08/28/2017 9:22 AM EST) BUN 11 6 - 19 mg/dL [facility] Blood 08/28/2017 9:22 AM EST 08/28/2017 9:26 AM EST Tashi Hong MD LAB BLOOD ORDERABLES Sheila l Result Performing Organization Address [facility] Co de Phone Number [address] [address] documented in this encounter Visit Diagnoses Diagnosis Encounter for hydration prior to CT scan- Primary documented in this encounter Additional Health Concerns Infection Onset Date Last Indicated Resolved Time CoV-Risk 10/13/2024 10/13/2024 10/24/2024 1:24 AM EST documented as of this encounter Care Teams Print Shop Manager Relationship Specialty Start Date End Date Van Mckeon DO [email or web address] PCP - General 07/16/17 documented as of this encounter Additional Source Comments The information contained in this document represents components of the legal health record. It is not the complete legal health record.[facility]
--- OUTSIDE RECORDS SUMMARY | 2025-07-03 14:15 | XMS_ITS | Encounter Summary ---
Author Organization [facility] Address [address] [facility] [address] [place] [address] Phone Care Team Providers Care Keg Washer Name Role Phone Van Mckeon DO Primary Care Provider [phone] Encounter Details Date Type Department Care Team (Late st Contact Info) Description 05/21/2020 Procedure Pass [facility] Endoscopy Admitting Dept Virtual Department [address] [place] [address] Social History Tobacco Use Types Packs/Day Years [...] documented as of this encounter Care Teams Keg Washer Relationship Specialty Start Date End Date Van Mckeon DO PCP - General 07/16/17 documented as of this encounter Additional Source Comments The information contained in this document represents components of the legal health record. It is not the complete legal health record.[facility]
--- OUTSIDE RECORDS SUMMARY | 2025-07-03 14:15 | XMS_ITS | Encounter Summary ---
Author Organization [facility] Address [address] [address] Phone Care Team Providers Care Ending Machine Operator Name Role Phone Van Mckeon Gurpreet PEREIRA Primary Care Provider [phone] Reason for Referral * Physical Therapy (Routine) - Closed Specialty Diagnoses / Procedures Referred By Berhane t Referred To Contact Physical Therapy Diagnoses Encounter for rehabilitation System, Provider Not In, PhD [phone] [place] [address] Phone: tel: Referral ID Status Reason Start Date Expiration Date Visits Re quested Visits Authorized [id number] Closed 10/01/2017 09/30/2018 99 99 Encounter Details Date Type Department Care Team (Latest Contact Info) Description 08/16/2017 Transcribe Orders [facility] [address] [place] [address] Ranjeet Jett MD [address] [place] [phone] Encounter for rehabilitation (Primary Dx) Social [...] Diagnoses Orde r Schedule Ambulatory referral to [facility] Physical Therapy Outpatient Referral Routine Encounter for rehabilitation Ordered: 08/16/2017 documented as of this encounter Visit Diagnoses Diagnosis Encounter for rehabilitation- Primary documented in this encounter Additional Health Concerns Infection Onset Date Last Indicated Resolved Time CoV-Risk 10/13/2024 10/13/2024 10/24/2024 1:24 AM EST documented as of this encounter Care Teams Ending Machine Operator Relationship Specialty Start Date End Date Van Mckeon DO [email or web address] PCP - General 07/16/17 documented as of this encounter Additional Source Comments The information contained in this document represents components of the legal health record. It is not the complete legal health record.[facility]
--- OUTSIDE RECORDS SUMMARY | 2025-07-03 14:15 | XMS_ITS | Encounter Summary ---
Author Organization [facility] Address [address] [place] [address] Phone Care Team Providers Care Dynamotor Repairer Name Role Phone Van Mckeon DO Primary Care Provider [phone] Encounter Details Date Type Department Care Team (Latest Contact Info) Description 08/15/2021 Transcribe Orders Virtual Department [address] [place] [address] Gillian Venron PA [address] [place] [address] [place] [address] Diarrhea, unspecified type (Primary Dx) Social History [...] documented as of this encounter Care Teams Dynamotor Repairer Relationship Specialty Start Date End Date Van Mckeon DO PCP - General 07/16/17 documented as of this encounter Additional Source Comments The information contained in this document represents components of the legal health record. It is not the complete legal health record.[facility]
--- OUTSIDE RECORDS SUMMARY | 2025-07-03 14:15 | XMS_ITS | Data Portability ---
Author Organization [facility], Telehealth Patient Home Address [address] [place] [address] Assessment Encounter Date Assessment Date Assessment LastModified by Organization Details LastModified Time 05/19/2024 05/19/2024 [id number] [place] [id number] ([employer]) [facility] MUST MEET 2 OUT OF 3 ELEMENTS: PROBLEMS, DATA OR RISK ELEMENT 1: PROBLEMS ADDRESSED 1 OR MORE CHRONIC ILLNESS WITH EXACERBATION OR 2 OR MORE STABLE CHRONIC ILLNESSES OR 1 UNDIAGNOSED NEW PROBLEM OR 1 ACUTE ILLNESS W/SYMPTOMS OR 1 ACUTE COMPLICATED INJURY ELEMENT 2: DATA MUST MEET 1 OF 3 CATEGORIES CATEGORY 1: REVIEW OF PRIOR EXTERNAL NOTES, REVIEW OF RESULTS, ORDERING OF EACH TEST, ASSESSMENT REQUIRING INDEPENDENT HISTORIAN OR CATEGORY 2: INDEPENDENT INTERPRETATION OF TESTS BY ANOTHER PHYSICIAN OR SPECIALIST OR CATEGORY 3: DISCUSSION OF MGT OR TEST INTERPRETATION W/EXTERNAL PHYSICIAN OR SPECIALIST ELEMENT 3: RISK RISK OF COMPLICATIONS AND/OR MORBIDITY OR MORTALITY OF PATIENT MANAGEMENT PROVIDER MUST THOROUGHLY DOCUMENT EACH ELEMENT THAT IS COVERED Not available 05/19/2024 15:36:40 11/11/2024 11/11/2024 [id number] [place] [id number] ([employer]) [facility] MOD[facility] MUST MEET 2 OUT OF 3 ELEMENTS: PROBLEMS, DATA OR RISK ELEMENT 1: PROBLEMS ADDRESSED 1 OR MORE CHRONIC ILLNESS WITH EXACERBATION OR 2 OR MORE STABLE CHRONIC ILLNESSES OR 1 UNDIAGNOSED NEW PROBLEM OR 1 ACUTE ILLNESS W/SYMPTOMS OR 1 ACUTE COMPLICATED INJURY ELEMENT 2: DATA MUST MEET 1 OF 3 CATEGORIES CATEGORY 1: REVIEW OF PRIOR EXTERNAL NOTES, REVIEW OF RESULTS, ORDERING OF EACH TEST, ASSESSMENT REQUIRING INDEPENDENT HISTORIAN OR CATEGORY 2: INDEPENDENT INTERPRETATION OF TESTS BY ANOTHER PHYSICIAN OR SPECIALIST OR CATEGORY 3: DISCUSSION OF MGT OR TEST INTERPRETATION W/EXTERNAL PHYSICIAN OR SPECIALIST ELEMENT 3: RISK RISK OF COMPLICATIONS AND/OR MORBIDITY OR MORTALITY OF PATIENT MANAGEMENT PROVIDER MUST THOROUGHLY DOCUMENT EACH ELEMENT THAT IS COVERED Not available 11/11/2024 12:08:52 12/05/2024 12/05/2024 [id number] [place] [id number] ([employer]) [facility] HIGH MUST MEET 2 OUT OF 3 ELEMENTS: PROBLEMS, DATA OR RISK ELEMENT 1: PROBLEMS 1 OR MORE CHRONIC ILLNESS W/SEVERE EXACERBATION, PROGRESSION MAY REQUIRE HOSPITAL LEVEL CARE OR 1 ACUTE OR CHRONIC ILLNESS OR INJURY THAT POSES A THREAT TO LIFE OR BODILY FUNCTION ELEMENT 2: DATA: MUST MEET 2 OF 3 CATEGORIES CATEGORY 1 REVIEW OF PRIOR EXTERNAL NOTES REVIEW OF THE RESULTS ORDERING OF EACH TEST ASSESSMENT REQUIRING INDEPENDENT HISTORIAN(S) CATEGORY 2: INDEPENDENT INTERPRETATION OF TESTS BY ANOTHER PROVIDER/SPECIALI ST CATEGORY 3: DISCUSSION OF MGT OR TEST INTERPRETATION W/EXTERNAL PHYSICIAN/SPECIAL IST ELEMENT 3: RISK HIGH RISK OF MORBIDITY FROM ADDITIONAL DIAGNOSTIC TESTING OR TREATMENT PROVIDER MUST THOROUGHLY DOCUMENT EACH ELEMENT THAT IS COVERED The patient presented to their appointment today for multiple concerns requiring moderate to high-level decision making and took over 40-45 minutes for an adequate and appropriate history, exam, assessment and treatment plan. This appointment was done with an established patient. Not available 12/05/2024 10:21:02 04/20/2025 04/20/2025 [id number] [place] [id number] ([employer]) [facility] MODERATE MUST MEET 2 OUT OF 3 ELEMENTS: PROBLEMS, DATA OR RISK ELEMENT 1: PROBLEMS ADDRESSED 1 OR MORE CHRONIC ILLNESS WITH EXACERBATION OR 2 OR MORE STABLE CHRONIC ILLNESSES OR 1 UNDIAGNOSED NEW PROBLEM OR 1 ACUTE ILLNESS W/SYMPTOMS OR 1 ACUTE COMPLICATED INJURY ELEMENT 2: DATA MUST MEET 1 OF 3 CATEGORIES CATEGORY 1: REVIEW OF PRIOR EXTERNAL NOTES, REVIEW OF RESULTS, ORDERING OF EACH TEST, ASSESSMENT REQUIRING INDEPENDENT HISTORIAN OR CATEGORY 2: INDEPENDENT INTERPRETATION OF TESTS BY ANOTHER PHYSICIAN OR SPECIALIST OR CATEGORY 3: DISCUSSION OF MGT OR TEST INTERPRETATION W/EXTERNAL PHYSICIAN OR SPECIALIST ELEMENT 3: RISK RISK OF COMPLICATIONS AND/OR MORBIDITY OR MORTALITY OF PATIENT MANAGEMENT PROVIDER MUST THOROUGHLY DOCUMENT EACH ELEMENT THAT IS COVERED Not available 04/20/2025 13:50:56 05/18/2025 05/18/2025 Patient presente d to office today for their Medicare Annual Wellness Visit. Education was provided on healthy nutrition, including a diet rich in fruits and vegetables, minimizing simple carbohydrates, salt, and saturated fats. Encouraged regular cardiovascular exercise such as walking at least 30 minutes daily, 5 times per week. Emphasized preventive health measures and educated pt on fall prevention and community-based lifestyle interventions to help reduce health risks and promote healthy living. Not available 05/18/2025 09:50:22 Plan of Treatment Reminders Order Date Submit Date Provider Last Modified By Organization Details Last Modified Time Details Appointments FOLLOW UP 15 2024 02:30P M DR PRESSLEY Not available Not available Not available FOLLOW UP 15 2025 09:00A M DR PRESSLEY Not available Not available Not available ANNUAL EXAM 2025 09:30A M DR PRESSLEY Not available Not available Not available Lab CBC w/ auto diff 2024 025 [facility], [address] [place] [address], [id number], 05/18/2025 09:58:34 CMP, serum or plasma 2024 025 [facility], [address] [place] [address], [id number], 05/18/2025 09:58:34 testoster one, free + total, serum 2024 025 [facility], [address] [place] [address], [id number], 06/15/2025 11:25:04 shbg (sex hormone-b inding globulin) , serum 2024 025 [facility], [address] [place] [address], [id number], 05/18/2025 10:02:07 lh + FSH, serum 2024 025 [facility], [address] [place] [address], [id number], 06/11/2025 09:47:41 lipid panel, blood 2024 025 [facility], [address] [place] [address], [id number], 05/18/2025 09:58:34 hemoglobi n, gastroint estinal, stool 2024 025 [facility], [address] [place] [address], [id number], 05/18/2025 09:58:34 lipid panel, blood 2024 025 [facility], [address] [place] [address], [id number], 04/20/2025 14:03:19 CMP, serum or plasma 2024 025 [facility], [address] [place] [address], [id number], 04/20/2025 14:56:26 PSA, serum or plasma 2024 025 [facility], [address] [place] [address], [id number], 04/20/2025 14:03:19 lipid panel, blood 2024 025 [facility], [address] [place] [address], [id number], 12/05/2024 10:32:20 CMP, serum or plasma 2024 025 [facility], [address] [place] [address], [id number], 12/05/2024 10:32:20 CBC 2024 025 [facility], [address] [place] [address], [id number], 12/05/2024 10:32:20 PSA, serum or plasma 2024 025 [facility], [address] [place] [address], [id number], 12/05/2024 10:32:20 testoster one, free + total, serum 2023 024 [facility], [address] [facility], [place], [address], 05/26/2024 11:08:28 Referral otolaryng ologist referral 2024 025 [facility], [address] [place], [address], 04/21/2025 09:24:38 Procedures None recorded. Surgeries None recorded. Imaging US, echocardi ogram 2024 025 [facility], [address] [facility], [address], [address], 12/19/2024 09:11:06 Medication Orders losartan 100 mg-hydroc hlorothia zide 25 mg tablet 2024 025 [facility]/Pharmacy #2024, [address] [place], [address], 05/18/2025 09:57:11 hydrocodo ne 5 mg-acetam inophen 325 mg tablet 2024 025 [facility] [address] [place], [address], 04/20/2025 13:57:59 azithromy janice 250 mg tablet 2024 025 [facility] [address] [place], [address], 12/05/2024 09:54:44 hydrocodo ne 10 mg-chlorp heniramin e 8 mg/5 mL oral susp extend.re l 12hr 2024 025 [facility]/Pharmacy #2024, [address] [place], [address], 12/05/2024 09:54:54 trazodone 50 mg tablet 2023 024 [facility]acy #2024, [address] [place], [address], 05/19/2024 15:40:40 fluticaso ne propionat e 50 mcg/actua tion nasal spray,yesica pension 2023 024 [email or web address] [facility]/Pharmacy #5, [address] [place], [address], 04/20/2025 13:27:41 sildenafi l 50 mg tablet 2023 025 [facility], [address] [place], [address], 11/11/2024 11:47:07 Patient TargetsNo targets recorded. Patient Instructions Encounter Date Encounter Id Patient Instructions Last Modified By Organization Details Last Modified Time 05/19/2024 [id number] allergies: care instructions Not available 05/19/2024 15:40:36 12/05/2024 [id number] Peripheral Arterial Disease (PAD): Care Instructions Not available 12/05/2024 10:31:06 pulse oximetry* Not available 12/05/2024 10:31:06 05/18/2025 [id number] advance care planning: care instructions Not available 05/18/2025 09:57:09 Discussed and explained advance directives such as standard forms to the . Face to face discussion lasted for a duration of ___ minutes. Not available 05/01/2025 15:10:51 Reason for Referral Automatic [employer] Operator Referral fo r Change in voice progressive change in voice and hoarseness hx tobacco Referring Physician: Van Pressley, Internal Medicine, Encounter Date: 04/20/2025 Results Created Date Observation Date Name Description Value Unit Range Abnormal Flag Note LastModifiedBy Organization Detail LastModifiedTime 12/06/1912/05/2024 pulse oxime try* Result 98% Not Available [facility] [address] [facility] [address], [place], [address], 12/03/2024 15:25:57 04/20/20 25 04/13/2025 US, echoc ardio gram No observ ation record ed. [facility] [address], [place], [address], 04/26/2025 22:00:54 Result Notes None recorded. 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 2017 bilatera l knee Not Available [facility] 2 18:09:04 Degenera tion of cervical interver tebral disc 30215211 Active 2017 Van Pressley, DO [address] [place] [address], [phone], [facility] 5 13:55:30 Hyperten sive disorder 76836817 Active 2017 Not Available [facility] 2 18:09:04 Degenera tion of lumbar interver tebral disc 45089767 Active 2017 Not Available [facility] 2 18:09:04 Hypercho lesterol emia 61205082 Active 2017 Not Available [facility] 2 18:09:04 History of left hip replacem ent 0050176755 571531 Active 2017 Not Available [facility] 2 18:09:04 History of right hip replacem ent 3801320513 312212 Active 2017 Not Available [facility] 2 18:09:04 Bursitis caused by bacteria l infectio n 688753209 Active 2017 Not Available [facility] 2 18:09:04 Iliofemo ral deep vein thrombos is 931735827 Active 2017 2018 Not Available [facility] 2 18:09:04 Hyponatr emia 24855725 Active 2017 Not Available [facility] 2 18:09:04 Hypokale billy 45727412 Active 2017 Not Available [facility] 2 18:09:04 Insomnia 314826058 Active 2017 Not Available [facility] 2 18:09:04 Depressi ve disorder 48649841 Active 2017 Not Available [facility] 2 18:09:04 Esophagi tis 11127200 Active 2017 Not Available [facility] 2 18:09:04 Benign esophage al strictur e 452316274 Active 2017 Not Available [facility] 2 18:09:04 Osteoart hritis of knee 994664437 Completed 201704/24/2018 Van Pressley DO [address] [place] [address], [address], [facility] 8 10:02:39 Replacem ent of bilatera l knee joints Active 2017 Not Available [facility] 2 18:09:04 Diarrhea 35767803 Active 2021 Not Available [facility] 2 18:09:04 Gastroes ophageal reflux disease 406541339 Active 2021 Not Available [facility] 2 18:09:04 Calcific coronary arterios clerosis 02262424 Active 2022 Van Pressley DO [address] [place] [address], [address], [facility] 3 22:51:44 Spasm 82517547 Active 2023 KRISTEN BURGESS [address] [place], [address], [facility] 4 14:02:57 Hemochro matosis 293401310 Active 2023 KRISTEN BURGESS [address] [place], [address], [facility] 4 12:52:14 Allergic rhinitis 08433308 Active 2023 Van Pressley DO [address] [place] [address], [address], [facility] 4 15:31:14 Erectile dysfunct ion 039866813 Active 2023 Van GurpreetCesar Pressley, DO [address] [place] [address], [phone], [facility] 4 15:37:14 Hypotest osteroni sm 6319377583 104 Active 2023 Van Pressley, DO [address] [place] [address], [phone], [facility] 5 10:00:06 Testoste itz level below referenc e range 409136009 Active 2023 KRISTEN BURGESS [address] [place] [address], [address], [facility] 4 12:02:42 Pneumoni tis 666030198 Active 2024 Van Pressley, DO [address] [place] [address], [address], [facility] 5 12:11:36 Cough 36390997 Active 2024 Van Pressley, DO [address] [place] [address], [address], [facility] 5 14:45:07 Dyspnea 912025879 Active 2024 Van Pressley, DO [address] [place] [address], [address], [facility] 5 10:23:07 Atypical chest pain 183891393 Active 2024 Van Pressley, DO [address] [place] [address], [address], [facility] 5 10:24:37 Moderate mitral valve stenosis 919413011 Active 2024 Van Pressley DO [address] [place] [address], [address], [facility] 5 13:40:45 Left atrial dilatati on 785803199 Active 2024 Van Pressley DO [address] [place] [address], [address], [facility] 5 13:41:04 Diastoli c dysfunct ion 0983630 Active 2024 Van Pressley DO [address] [place] [address], [address], [facility] 5 13:42:27 Change in voice 450341950 Active 2024 Van Pressley DO [address] [place] [address], [address], [facility] 5 13:51:46 Unexplai buck chronic cough Active 2024 Van Pressley DO [address] [place] [address], [address], [facility] 5 10:02:29 Problem Notes None recorded. Procedures Surgical History Date Name Laterality Status Provider Name and Address Organization Details Recorded Time 0 Cerumen Removal completed KRISTEN BURGESS [address] [place] [address], [phone], [facility] 08/16/2020 15:18:04 Imaging Results None recorded. Procedure Notes None recorded. Medical Equipment None Reported. Allergies No known drug allergies Medications Name Sig Start Date Stop Date Status Note LastModified by Organization Details LastModified Time celecoxib 200 mg capsule 09/18 completed Not Available Not Available Not Available cyclobenzap rine 10 mg tablet TAKE 1 TABLET BY MOUTH TWICE A DAY NEEDED active Not Available Not Available No t Available amoxicillin 500 mg capsule 08/06 completed Not Available Not Available Not Available silver sulfadiazin e 1 % topical cream 04/24 completed Not Available Not Available Not Available gabapentin 600 mg tablet 08/26 completed Not Available Not Available Not Available trazodone 50 mg tablet TAKE 1 TABLET BY MOUTH EVERYDAY AT BEDTIME active Not Available Not Available No t Available sildenafil 50 mg tablet TAKE 1 TABLET BY MOUTH NEEDED 11/11 completed Not Available Not Available Not Available lisinopril 20 mg-hydrochl orothiazide 12.5 mg tablet TAKE 2 TABLETS BY MOUTH EVERY DAY 05/18 completed Not Available Not Available Not Available azithromyci n 250 mg tablet TAKE 2 TABLETS BY MOUTH TODAY, THEN TAKE 1 TABLET DAILY FOR 4 DAYS DIRECTED 12/05 completed Not Available Not Available Not Available benzonatate 200 mg capsule TAKE 1 CAPSULE BY MOUTH THREE TIMES A DAY NEEDED FOR 14 DAYS 12/05 completed Not Available Not Available Not Available atenolol 100 mg tablet TAKE 1 TABLET BY MOUTH EVERY DAY active Not Available Not Available No t Available hydrocodone 5 mg-acetamin ophen 325 mg tablet TAKE 1 TABLET EVERY 8 HOURS BY ORAL ROUTE NEEDED FOR 7 DAYS, FOR CERVICAL PAIN. active Not Available Not Available No t Available meloxicam 15 mg tablet 09/18 completed Not Available Not Available Not Available famotidine 40 mg tablet TAKE 1 TABLET BY MOUTH EVERYDAY AT BEDTIME active Not Available Not Available No t Available sertraline 100 mg tablet TAKE 1 TABLET BY MOUTH EVERY DAY active Not Available Not Available No t Available simvastatin 10 mg tablet TAKE 1 TABLET BY MOUTH EVERY DAY 01/27 completed Not Available Not Available Not Available atenolol 25 mg tablet 09/18 completed Not Available Not Available Not Available metronidazo le 500 mg tablet Take 1 tablet every 8 hours by oral route for 7 days. 01/27 completed Not Available Not Available Not Available clopidogrel 75 mg tablet TAKE 1 TABLET BY MOUTH EVERY DAY active Not Available Not Available No t Available amlodipine 5 mg tablet 09/18 completed Not Available Not Available Not Available sulfamethox azole 800 mg-trimetho prim 160 mg tablet 08/06 completed Not Available Not Available Not Available peg-electro lyte solution 420 gram oral solution USE DIRECTED PER GI OFFICE 01/27 completed Not Available Not Available Not Available omeprazole 40 mg capsule,del ayed release TAKE 1 CAPSULE BY MOUTH EVERY DAY 11/24 completed Not Available Not Available Not Available amitriptyli ne 50 mg tablet TAKE 1 TABLET BY MOUTH EVERYDAY AT BEDTIME 11/24 completed Not Available Not Available Not Available triamcinolo ne acetonide 0.1 % topical cream APPLY A THIN LAYER TO THE AFFECTED AREA(S) BY TOPICAL ROUTE 2 TIMES PER DAY 07/18 completed Not Available Not Available Not Available amoxicillin 500 mg tablet 01/27 completed Not Available Not Available Not Available losartan 100 mg-hydrochl orothiazide 25 mg tablet TAKE 1 TABLET BY MOUTH EVERY DAY FOR 30 DAYS active Not Available Not Available No t Available hydromorpho ne 2 mg tablet 04/24 completed Not Available Not Available Not Available Imodium A-D 2 mg tablet Take 1 tablet every day by oral route as needed for 14 days. 01/27 completed Not Available Not Available Not Available amlodipine 10 mg tablet TAKE 1 TABLET BY MOUTH EVERY DAY active Not Available Not Available No t Available cephalexin 500 mg capsule Take 1 capsule every 6 hours by oral route for 10 days. 08/06 completed Not Available Not Available Not Available pantoprazol e 40 mg tablet,harika yed release 09/18 completed Not Available Not Available Not Available erythromyci n 5 mg/gram (0.5 %) eye ointment APPLY A SMALL AMOUNT ON EYELID SUTURE LINE TWICE A DAY AND INSIDE EACH LOWER EYELID AT BEDTIME 11/11 completed Not Available Not Available Not Available fluconazole 50 mg tablet 09/18 completed Not Available Not Available Not Available ranitidine 150 mg tablet Take 1 tablet every day by oral route for 90 days. 01/24 completed Not Available Not Available Not Available hydrocodone -homatropin e 5 mg-1.5 mg/5 mL oral solution TAKE 5 ML 4 TIMES A DAY BY ORAL ROUTE NEEDED FOR 5 DAYS. 12/05 completed Not Available Not Available Not Available docusate sodium 100 mg capsule TAKE 1 CAPSULE BY MOUTH TWICE A DAY FOR 7 DAYS 08/16 completed Not Available Not Available Not Available omeprazole 20 mg capsule,del ayed release 09/18 completed Not Available Not Available Not Available diclofenac sodium 75 mg tablet,harika yed release TAKE 1 TABLET BY MOUTH TWICE A DAY 01/24 completed Not Available Not Available Not Available zolpidem 5 mg tablet 09/18 completed Not Available Not Available Not Available zolpidem 10 mg tablet 09/18 completed Not Available Not Available Not Available hydrocodone 10 mg-chlorphe niramine 8 mg/5 mL oral susp extend.rel 12hr Take 5 mL every 12 hours by oral route for 7 days. 12/05 completed Not Available Not Available Not Available fluticasone propionate 50 mcg/actuati on nasal spray,suspe nsion INSTILL 1 SPRAY INTO EACH NOSTRIL EVERY DAY FOR 30 DAYS CALL OFFICE FOR REFILLS 04/20 completed Not Available Not Available Not Available doxycycline hyclate 100 mg tablet 04/24 completed Not Available Not Available Not Available testosteron e 1 % (50 mg/5 gram) transdermal gel packet 2024 active Not Available Not Available Not Avai lable oxycodone 5 mg tablet Take 2 tablets every 6 hours by oral route as needed for 7 days. 08/16 completed Not Available Not Available Not Available rosuvastati n 20 mg tablet TAKE 1 TABLET BY MOUTH EVERYDAY AT BEDTIME 07/18 completed Not Available Not Available Not Available rosuvastati n 40 mg tablet TAKE 1 TABLET BY MOUTH EVERY DAY active Not Available Not Available No t Available Prevalite 4 gram oral powder TAKE 1 SCOOP 3 TIMES A DAY BY ORAL ROUTE NEEDED FOR 30 DAYS. 07/18 completed Not Available Not Available Not Available chlorhexidi ne gluconate 0.12 % mouthwash 08/06 completed Not Available Not Available Not Available testosteron e 50 mg/5 gram (1 %) transdermal gel active Not Available Not Available Not Available oxycodone 10 mg tablet Take 1 tablet 4 times a day by oral route as needed for 7 days. 09/18 completed Not Available Not Available Not Available Prevnar 13 (PF) 0.5 mL intramuscul ar syringe 08/26 completed Not Available Not Available Not Available hydrocodone -homatropin e 5 mg-1.5 mg/5 mL (5 mL) oral solution 5ml po tid prn 12/05 completed Not Available Not Available Not Available Afluria Quad (PF) 60 mcg (15 mcg x 4)/0.5 mL IM syringe 08/26 completed Not Available Not Available Not Available Fluzone Quad (PF) 60 mcg (15 mcg x 4)/0.5 mL IM syringe [facility]ARMACY [facility] 08/06 completed Not Available Not Available Not Available Vitals Date Recorded Body height Body mass index (BMI) Body weight Heart rate Oxygen saturation Oxygen saturation in Arterial blood by Pulse oximetry Systolic And Diastolic Provider Name and Address Organization Details Last Updated DateTime 5 172.72 cm 34.8 kg/m2 635208. 65 g 76 /min 97 % 97 % 138/70 mm[Hg] Shan Addison [facility] 5 11:48:50 Date Recorded Body height Body mass index (BMI) Body weight Heart rate Oxygen saturation Oxygen saturation in Arterial blood by Pulse oximetry Systolic And Diastolic Provider Name and Address Organization Details Last Updated DateTime 5 172.72 cm 35.2 kg/m2 148495. 63 g 68 /min 98 % 98 % 138/88 mm[Hg] Zaida Boone [facility] 5 09:59:50 Date Recorded Body height Body mass index (BMI) Body weight Oxygen saturation Oxygen saturation in Arterial blood by Pulse oximetry Heart rate Systolic And Diastolic Provider Name and Address Organization Details Last Updated DateTime 5 172.72 cm 35 kg/m2 893932. 25 g 96 % 96 % 70 /min 128/74 mm[Hg] Gloria Marcos [facility] 5 13:30:40 Date Recorded Body height Body mass index (BMI) Body weight Oxygen saturation Oxygen saturation in Arterial blood by Pulse oximetry Heart rate Systolic And Diastolic Provider Name and Address Organization Details Last Updated DateTime 5 172.72 cm 35.2 kg/m2 411952. 99 g 96 % 96 % 78 /min 136/68 mm[Hg] Gloria Marcos [facility] 5 09:26:53 Date Recorded Body height Body mass index (BMI) Body weight Heart rate Oxygen saturation Oxygen saturation in Arterial blood by Pulse oximetry Systolic And Diastolic Provider Name and Address Organization Details Last Updated DateTime 4 171.45 cm 35.6 kg/m2 846087. 84 g 75 /min 96 % 96 % 128/80 mm[Hg] Shan Addison [facility] 4 15:16:50 Social History Question Answer Notes LastModified by Organizat ion Details LastModified Time Tobacco Smoking Status Former Smoker Not Available [facility] 08[facility]/2020 03:36:24 What Was The Date Of Your Most Recent Tobacco Screening? 05/18/2025 Information not available 05/18/2025 Sex: Unknown Functional Status None recorded. Mental Status None recorded. Family History Nothing Reported. Medical History No medical history recorded. Immunizations Vaccine Type Date Status Note Provider Nam e and Address Organization Details Recorded Time Influenza, split virus, quadrivalent, preservative 8 completed Not Available [facility] 08/11/2022 18:09:05 Influenza, split virus, quadrivalent, preservative 1 completed Not Available [facility] 08/11/2022 18:09:05 COVID-19, mRNA, LNP-S, PF, 30 mcg/0.3 mL dose 2 completed Not Available [facility] 08/11/2022 18:09:05 COVID-19, mRNA, LNP-S, PF, 30 mcg/0.3 mL dose 1 completed Not Available [facility] 08/11/2022 18:09:05 pneumococcal polysaccharide PPV23 7 completed Not Available [facility] 08/11/2022 18:09:05 Pneumococcal conjugate PCV 13 9 completed Not Available [facility] 08/11/2022 18:09:05 zoster live 9 completed Not Available [facility] 08/11/2022 18:09:05 Influenza, split virus, quadrivalent, preservative 9 completed Not Available [facility] 08/11/2022 18:09:05 Influenza, split virus, quadrivalent, preservative 0 completed Not Available [facility] 08/11/2022 18:09:05 COVID-19, mRNA, LNP-S, PF, 30 mcg/0.3 mL dose 1 completed Not Available [facility] 08/11/2022 18:09:05 COVID-19, mRNA, LNP-S, PF, 30 mcg/0.3 mL dose 1 completed Not Available [facility] 08/11/2022 18:09:05 Past Encounters Encounter ID Performer Location Encounter Start Date Encounter Closed Date Diagnosis/Indication Diagnosis SNOMED-CT Code Diagnosis ICD10 Code Diagnosis IMO Codes Diagnosis Note [id number] Van A. Bigjim [facility] [address] [facility] [address] 04/24/2018 09:26:52 04/24/2018 14:05:13 Hypertensive disorder 52838708 I10 doing well overall states that knee has caused increased stresss Osteoarthr itis of knee 119900397 M17.[address] vinson may 30 Osteoarthritis 755646447 M19.90 will give him rx to hold in case of severe pain [id number] Van Averyjim [facility] [address] [facility],[place] [address] 09/18/2018 09:13:39 09/18/2018 11:48:30 Hypercholesterolemia 45368543 E78.00 will need to have his blood work Hypertensive disorder 38 114117 I10 doing well overall states that knee has caused increased stresss Osteoarthritis 491154977 M19.90 will give him rx to hold in case of severe pain [id number] Van GurpreetCesar Mike [facility] Internal [facility] [address] [facility],[place] [address] 11/04/2018 09:56:07 11/04/2018 14:08:21 Cellulitis 206180770 L03.90 will go ahead and treat now elevate leg warm moist [place] [id number] Van Baker Mike [facility] Internal [facility] [address] [facility] [address] 08/26/2019 10:19:56 08/26/2019 10:52:10 Adult health examination 159224771 Z00.00 doing well except for these episodes of sudden sharp pain no pattern etc Peripheral vascular disease 611631452 I73.9 stable Degenerati on of cervical intervertebral disc 05305450 M50.30 stable thus far Impaired f asting glycemia 541485580 R73.01 as noted fbs of 112 [id number] Van VázquezCesar Pressley [facility] [address] [facility] [address] 08/06/2020 13:43:10 08/06/2020 14:24:20 Hypertensive disorder 92767431 I10 doing well overall states that knee has caused increased stresss Hypercholesterolemia 136 03778 E78.00 will need to have his blood work Degenerati on of cervical intervertebral disc 33734347 M50.30 has now progressed to complete disabling pain hurts daily all night unable to do certain tasks or activities we will need to refer to neurosurg but needs an mri first Bursitis c aused by bacterial infection 867767675 M71.10 seems stable and followed up with surgery [id number] Van Pressley [facility] [address] [facility] [place] [address] 08/16/2020 14:26:25 08/16/2020 16:07:57 Acute otitis media 2594091 H65.02 left ear was cleaned started on abx Hypertensive disorder 38 129284 I10 [place] [id number] Vna Pressley [facility] [address] [facility] [address] 11/02/2020 11:26:50 11/02/2020 15:37:00 Degeneration of cervical intervertebral disc 51708401 M50.30 has now progressed to complete disabling pain hurts daily all night unable to do certain tasks or activities he will be seeing a neurosurg from [facility] next week mri has been done but we dont have the report await consult Hypertensive disorder 38 656899 I10 doing well overall states that his bps have been stable Esophagitis 52076717 K20 .90 stable no major issues cont with ppi H2 block when need [id number] Van Pressley DO [facility] [address] [facility] [address] 01/24/2021 16:18:45 01/24/2021 17:05:17 Hypertensive disorder 43132799 I10 doing well overall states that his bps have been stable Hypercholesterolemia 136 54189 E78.00 will need to have his blood work and he never restarted his simvastati n back in jun after hospitaliz ation Ganglion c yst of right volar wrist 9131536730 1460156 M67.431 will need to refer Eczema of external auditory canal 20657895 H60.549 [id number] Van Pressley [facility] [address] [place] [address] 07/27/2021 15:43:42 07/27/2021 16:56:27 Hypertensive disorder 37904817 I10 doing well overall states that his bps have been stable Depressive disorder 3548 9007 F32.A stable Hypercholesterolemia 136 96857 E78.00 will need to have his blood work and he never restarted his simvastati n back in jun after hospitaliz ation Eczema of external auditory canal 22464726 H60.549 Hypokalemia 99777352 E87 .6 stable and we will follow Hyponatremia 77695198 E8 7.1 stable Peripheral vascular disease 126952718 I73.9 stable Ganglion c yst of left wrist 8921380625 41870 M67.432 [id number] Van Pressley [facility] [address] [place] [address] 01/27/2022 09:06:16 01/27/2022 10:26:57 Hypercholesterolemia 15635527 E78.00 will need to have his blood work and he never restarted his simvastati n back in jun after hospitaliz ation Hypertensive disorder 38 627980 I10 doing well overall states that his bps have been stable Peripheral vascular disease 824267398 I73.9 stable Active or passive immunization 327312518 Z23 aware due for 2nd shingles shot and Tdap Diarrhea 25076085 R19.7 states that he has started on this and we will try some cholestyra mine [id number] Van Pressley [facility] [address] [place] [address] 08/09/2022 08:41:38 08/09/2022 13:39:57 Hypercholesterolemia 15672490 E78.00 will need to have his blood work and he never restarted his simvastati n back in jun after hospitaliz ation Hypertensive disorder 38 753834 I10 doing well overall states that his bps have been stable Advance care planning 71 0362958 Z71.89 done Abdominal aortic aneurysm screening 817814717 Z13.6 Hepatitis C screening 41 8102499 Z11.59 Active or passive immunization 836654681 Z23 patient advised he is due for flu, tdap, & shingles Gastroesop hageal reflux disease 699842488 K21.9 prob doesnt need we will try weanning off both meds famotidine fust stop and omeprazole week later Degenerati on of cervical intervertebral disc 24832518 M50.30 has now progressed to complete disabling pain hurts daily all night unable to do certain tasks or activities we will change amitript to trazodone then we will change the serttaline to duloxetine [id number] Van Pressley DO [facility] [address] [facility],[place] [address] 11/24/2022 10:09:56 11/24/2022 11:12:30 Hypertensive disorder 22513568 I10 doing well overall states that his bps have been stable Hypokalemia 87399750 E87 .6 stable and we will follow Hyponatremia 36403934 E8 7.1 stable Peripheral vascular disease 945941634 I73.9 stable Degenerati on of cervical intervertebral disc 03491809 M50.30 has now progressed to complete disabling pain hurts daily all night unable to do certain tasks or activities we will change amitript to trazodone then we will change the sertaline to duloxetine [id number] Van Pressley DO [facility] [address] [facility],[place] [address] 07/18/2023 09:40:53 07/18/2023 11:20:12 Calcific coronary arteriosclerosis 56442317 I25.84 high score but negative work up for signif cad had neg perfusion scan Diarrhea 03223965 R19.7 now resolved over time Hypertensive disorder 38 532228 I10 doing well overall states that his bps have been stable Degenerati on of cervical intervertebral disc 00783101 M50.30 has now progressed to complete disabling pain hurts daily all night unable to do certain tasks or activities so he is now interested in pain management and we will refer [id number] Van Pressley DO [facility] [address] [facility],[place] [address] 05/19/2024 15:03:39 05/19/2024 15:43:15 Hypercholesterolemia 85942403 E78.00 will need to have his blood work and he never restarted his simvastati n back in jun after hospitaliz ation Hypertensive disorder 38 692759 I10 doing well overall states that his bps have been stable Depression screening 171 896771 Z13.31 neg Degenerati on of cervical intervertebral disc 95685524 M50.30 has now progressed to complete disabling pain hurts daily all night unable to do certain tasks or activities so he is now interested in pain management and we will refer Allergic rhinitis 584214 04 J30.9 will try Erectile dysfunction 860 269669 F52.21 [id number] Van Pressley [facility] [address] [facility] [address] 11/11/2024 11:37:25 11/11/2024 12:43:36 Hypertensive disorder 02117445 I10 doing well overall states that his bps have been stable Pneumonitis 425621668 J1 8.9 [id number] Van Pressley [facility] [address] [facility] [address] 12/05/2024 09:46:36 12/05/2024 10:36:21 Depression screening 653697352 Z13.31 neg Pneumonitis 504969401 J1 8.9 resolved but feeling windedbut relates that he feels his chest is heavy first thing every morning Hypertensive disorder 38 828445 I10 doing well overall states that his bps have been stable Hypercholesterolemia 136 18579 E78.00 will need to have his blood work and he never restarted his simvastati n back in jun after hospitaliz ation Peripheral vascular disease 100530350 I73.9 stable Acquired d ilatation of ascending aorta and aortic root 439014640 I77.810 will set up echo now chk mitral valve as well [id number] Van Pressley [facility] [address] [facility] [address] 04/20/2025 13:17:52 04/20/2025 14:04:34 Depression screening 583165557 Z13.31 neg Degenerati on of cervical intervertebral disc 61809732 M50.30 81604 prior has now progressed to complete disabling pain hurts daily all night unable to do certain tasks or activities so he is now interested in pain management and we will refer Hypercholesterolemia 136 16071 E78.00 will need to have his blood work and he never restarted his simvastati n back in jun after hospitaliz ation Hypotestosteronism 34862 25822 104 R89.1 waiting for lab Change in voice 77810578 5 R49.9 733228 stop the lisinopril call in one week and we will refer to ent [id number] Van Pressley DO [facility] [address] [facility] [address] 05/18/2025 09:20:47 05/18/2025 10:04:41 Screening for cardiovascular system disease 602032825 Z13.6 doing well except for these episodes of sudden sharp pain no pattern etc Screening for malignant neoplasm of colon 365894736 Z12.11 Depression screening 171 308569 Z13.31 neg Hypertensive disorder 38 870338 I10 doing well overall states that his bps have been stable but will change the lisinopril to losartan Hypotestosteronism 60499 84246 104 R89.1 E34.9 540603 waiting for lab General ex amination of patient 362256599 Z00.01 96547363 doing well except for these episodes of sudden sharp pain in the neck ]relates he is still having sob and coughing and is driving him nuts he also stopped the lisinopril for a week and did not see any change with the coughno pattern etc Health Concerns Section Related Observation LastModified by Organization Detai ls LastModified Time None Recorded Concern Status LastModified by Organization Details LastModified Time None Recorded Advance Directives Directive None Recorded Payers Insurance Date Sequence Insurance Name Policy Number Policy Phipps Covered Member ID Phipps Member ID Guarantor Name 05/15/2025 1 [facility]ICARE PPO BLUE (MEDICARE REPLACEMENT PPO) [id number] Lorenzo White [id number] Lorenzo White Notes Date Note Type Note Provider Name and Address Organization Details Recorded Time 05/19/20 24 text/htm l ROS as noted in the HPI here for rechk relates is coughing in the morning with clear mucous and post nasal drip Van Pressley DO [address] [facility], [place], [address], [facility] 05/19/2024 15:42:47 11/11/19 25 text/htm l ROS as noted in the HPI here for rechkdoing ok overall has been having a cough for several weeks since a viral infection 3 weeks ago Van Pressley, DO [address] [facility], [place], [address], [facility] 11/11/2024 12:13:31 12/06/19 25 text/htm l Care Management - HypertensionReported by PatientHPIFor self care, patient reportsnot under emotional stress. For severity, patient reportssymptoms are improvinganddoes not interfere with daily activities. For associated symptoms, patient reportsno dizziness,no lightheadedness,no chest pain,no shortness of breath,no palpitations,no edema,no calf muscle cramps,no blurred vision,no confusion,no headaches, andno fatigue. Care Management - HyperlipidemiaReported by PatientHPIFor control, patient reportsusually well controlled,improving, andat goal. For complications, patient reportsno coronary artery disease,no heart attack,no cardiovascular disease,no pancreatitis, andno stroke.ROS as noted in the HPI here for rechkrelates his breathng seems offrelates tariq his cough is gone but he is very fatigued taking care of his due to her being in hospital with pneumonia Van Pressley, DO [address] [facility], [place], [address], [facility] 12/05/2024 10:33:04 04/20/20 25 text/htm l Care Management - HypertensionReported by PatientHPIFor self care, patient reportsnot under emotional stress. For severity, patient reportssymptoms are improvinganddoes not interfere with daily activities. For associated symptoms, patient reportsno dizziness,no lightheadedness,no chest pain,no shortness of breath,no palpitations,no edema,no calf muscle cramps,no blurred vision,no confusion,no headaches, andno fatigue. Care Management - HyperlipidemiaReported by PatientHPIFor control, patient reportsusually well controlled,improving, andat goal. For complications, patient reportsno coronary artery disease,no heart attack,no cardiovascular disease,no pancreatitis, andno stroke. Musculoskeletal PainReported by PatientHPIFor location, patient reportspain is not radiating. For severity, patient reportsimproving. For associated symptoms, patient reportsno fever,no weak limbs,no tingling,no numbness of the legs/feet, andno incontinence. For adl (activities of daily living), patient reportsimprove with medication.ROS as noted in the HPI here for eval of the echo and labdoing ok overall just back from [place] had a great time Van Pressley, DO [address] [facility], [place], [address], [facility] 04/20/2025 13:59:07 05/18/20 25 text/htm l Care Management - HypertensionReported by PatientHPIFor self care, patient reportsnot under emotional stress. For severity, patient reportssymptoms are improvinganddoes not interfere with daily activities. For associated symptoms, patient reportsno dizziness,no lightheadedness,no chest pain,no shortness of breath,no palpitations,no edema,no calf muscle cramps,no blurred vision,no confusion,no headaches, andno fatigue. Medicare Annual Wellness VisitReported by PatientSocial/Behavioral HistoryFor diet and nutrition, patient reportshealthy diet. For fracture risk, patient reportsno history of fractures,no recent explained fracture,no sudden unexplained fractures, andno previous musculoskeletal injuries. For physical activity, patient reportsexercises on a regular basis,recent increase in physical activity, andgood physical condition.Mental Status:For depression risk, patient reportsnever feels sad, empty, or tearful,no loss of interest in activities,no significant changes in weight,no sleep disturbances or insomnia,no agitation,no loss of energy,no feelings of worthlessness or guilt,no thoughts of suicide,no history of depression, andno history of mood disorders. For orientation, patient reportsno disorientation to time,no disorientation to date, andno disorientation to place. For concentration and memory, patient reportsno decreased concentrating ability,no memory lapses or loss, anddoes not forget words. For speech/motor difficulties, patient reportsno speech difficulties,no difficulty expressing formulated concepts,no difficulty with fine manipulative tasks,no difficulty writing/copying,no slowed reaction time, anddoes not knock things over when trying to pick them up.Functional AbilityFor hearing, patient reportsno loss of hearing. For vision, patient reportsno vision problems. For activities of daily living, patient reportsable to bathe with limited or no assistance,able to contol urination and bowels,able to dress with limited or no assistance,able to feed self with limited or no assistance,able to get out of chair or bed with limited or no assistance,able to groom with limited or no assistance, andable to toilet with limited or no assistance. For instrumental activities of daily living, patient reportsable to do house work with limited or no assistance,able to grocery shop with limited or no assistance,able to manage medications with limited or no assistance,able to manage money with limited or no assistance,able to prepare meals with limited or no assistance, andable to use the phone with limited or no assistance. For falls risk assessment, patient reportsno frequent falls while walking,no fall in the past year,no fall since last visit, andno dizziness/vertigo. For home safety, patient reportsno unsafe andrew hazzards,no unsafe stairs,no unsafe gas appliances,working smoke/co detectors,wears protective head gear for biking/high velocity,use of seatbelts,practicing 'safer sex',no vision or hearing loss while driving,no fire arms,has hand bars in the bathroom/shower, andgood lighting in the home.ROS as noted in the HPI Van Pressley, DO [address] [facility], [place], [address], [facility] 05/18/2025 10:01:35
--- OUTSIDE RECORDS SUMMARY | 2025-07-03 14:15 | XMS_ITS | Encounter Summary ---
Author Organization [facility] Address [address] [place] [address] Phone Care Team Providers Care Leather Flesher Name Role Phone Van Mckeon DO Primary Care Provider [phone] Encounter Details Date Type Department Care Team (Late st Contact Info) Description 09/25/2017 Documentation [facility] [address] [place] [address] Gretchen Vang, PT [email or web address] Social History Tobacco Use Types Packs/Day [...] documented as of this encounter Care Teams Leather Flesher Relationship Specialty Start Date End Date Van Mckeon DO PCP - General 07/16/17 documented as of this encounter Additional Source Comments The information contained in this document represents components of the legal health record. It is not the complete legal health record.[facility]
--- OUTSIDE RECORDS SUMMARY | 2025-07-03 14:15 | XMS_ITS | Encounter Summary ---
Author Organization [facility] Address [address] [place] [address] Phone Care Team Providers Care Patrol Guard Name Role Phone Van Mckeon DO Primary Care Provider [phone] Reason for Referral * Physical Therapy (Routine) - Closed Specialty Diagnoses / Procedures Referred By Contac t Referred To Contact Physical Therapy Diagnoses Encounter for rehabilitation System, Provider Not In, PhD [address] [place] [address] [address] [place] [address] Phone: tel: Referral ID Status Reason Start Date Expiration Date Visits Re quested Visits Authorized [id number] Closed 07/29/2018 09/30/[phone] Encounter Details Date Type Department Care Team (Late st Contact Info) Description 06/27/2018 Transcribe Orders [facility] [address] [place] [id number] Van Mckeon DO [address] [facility] [place] [address] Encounter for rehabilitation (Primary Dx) Social History [...] Diagnoses Orde r Schedule Ambulatory referral to [facility] Physical Therapy Outpatient Referral Routine Encounter for rehabilitation Ordered: 06/27/2018 documented as of this encounter Visit Diagnoses Diagnosis Encounter for rehabilitation- Primary documented in this encounter Additional Health Concerns Infection Onset Date Last Indicated Resolved Time CoV-Risk 10/13/2024 10/13/2024 10/24/2024 1:24 AM EST documented as of this encounter Care Teams Patrol Guard Relationship Specialty Start Date End Date Van Mckeon DO [email or web address] PCP - General 07/16/17 documented as of this encounter Additional Source Comments The information contained in this document represents components of the legal health record. It is not the complete legal health record.[facility]
== END 2025-07-03 14:02 | disposition home or self-care (01) ==
LOC: HO.MANLDS 14:01
PROVIDERS: Visit Provider Internal Medicine
DX: E34.9 Endocrine disorder, unspecified (principal)
CPT/HCPCS: 36415; 84403

== ENCOUNTER 2025-07-10 09:58 | Outpatient (REF) | payer MEDICARE, SELFPAY | END 2025-07-10 09:59 | disposition home or self-care (01) | LOC: HO.MANLDS 09:58 | PROVIDERS: Visit Provider Internal Medicine | DX: E34.9 Endocrine disorder, unspecified (principal) | CPT/HCPCS: 36415; 84403 ==

== ENCOUNTER 2025-08-21 15:32 | Outpatient (REF) | payer MEDICARE, SELFPAY ==
--- OUTSIDE RECORDS SUMMARY | 2024-10-13 11:59 | XMS_ITS | Encounter Summary ---
Author Organization [facility] Address [address] [facility] [address] [place] [address] Phone Care Team Providers Care Clinical Lab Scientist Name Role Phone Van Mckeon Gurpreet PEREIRA Primary Care Provider [phone] Encounter Details Date Type Department Care Team (Late st Contact Info) Description 10/13/2024 11:59 AM [facility] Hospital Encounter [facility] [address] [place] [id number] Malika Bonilla CNP [address] [place] [address] [email or web address] Social History Tobacco Use Types Packs/Day Years Used Date Smoking Tobacco: Former Cigarettes Smokeless Tobacco: Never Comments:quit 30 yrs ago Alcohol Use Standard Drinks/Week Comments Yes 1 (1 standard drink = 0.6 oz pur e alcohol) daily Education Answer Date Recorded Are you interested in more education? Not on phylicia e 01/26/2023 Are you concerned about learning? Not on file 01/26/2023 No 01/26/2023 No 01/26/2023 Digital Access Answer Date Recorded No 02/26/2023 No 02/26/2023 Reliable internet access at home? Not on file 02/26/2023 Device with a working camera? Not on file Sex and Gender Information Value Date Recorded Sex Assigned at Not on file Legal Sex Male 9:54 PM EDT Gender Identity Not on file Sexual Orientation Not on file documented as of this encounter Plan of Treatment Not on file documented as of this encounter Procedures Procedure Name Priority Date/Time Associated Diagnosis Comments XR CHEST PA AND LATERAL 2 VIEWS Urgent/patient waiting 10/13/2024 12:02 PM EST Cough documented in this encounter Results * XR CHEST PA AND LATERAL 2 VIEWS (10/13/2024 12:02 PM EST) Anatomical Region Laterality Modality Chest Computed Radiogr aphy 10/13/2024 12:3 2 PM EST Impressions 10/13/2024 12:32 PM EST No acute abnormality. Narrative 10/13/2024 12:32 PM EST XR CHEST PA AND LATERAL 2 VIEWS Referring clinician's provided indication for this examination in [facility]: Cough; X 5 -6 weeks COMPARISON: None FINDINGS: Devices/Tubes/Lines: None. Lungs: Low lung volumes. No focal consolidation or pulmonary edema. Pleura: No pleural effusion or pneumothorax. Heart/Mediastinum: Mild cardiomegaly. Aortic arch calcification. Bones/Soft Tissues: Mild thoracic spine degenerative changes. Procedure Note Luis Angel Mayers MD, PhD - 10/13/2024 XR CHEST PA AND LATERAL 2 VIEWS Referring clinician's provided indication for this examination in [facility]:Cough; X 5 -6 weeks COMPARISON: None FINDINGS: Devices/Tubes/Lines: None. Lungs: Low lung volumes. No focal consolidation or pulmonary edema. Pleura: No pleural effusion or pneumothorax. Heart/Mediastinum: Mild cardiomegaly. Aortic arch calcification. Bones/Soft Tissues: Mild thoracic spine degenerative changes. IMPRESSION: No acute abnormality. us Malika Bonilla WHEEL SETTER IMG XR CHEST Final Resul t documented in this encounter Visit Diagnoses Not on filedocumented in this encounter Additional Health Concerns Infection Onset Date Last Indicated Resolved Time CoV-Risk 10/13/2024 10/13/2024 10/24/2024 1:24 AM EST documented as of this encounter Care Teams Clinical Lab Scientist Relationship Specialty Start Date End Date Van Mckeon DO [email or web address] PCP - General 07/16/17 documented as of this encounter Additional Source Comments The information contained in this document represents components of the legal health record. It is not the complete legal health record.[facility]
--- NOTE | 2025-08-21 | PFT_ITS ---
Flows: FEV1: 85 % of predicted at 2.57 L FVC: 89 % of predicted at 3.54 L FEV1/FVC: 73 % Bronchodilator response: Absent Volumes: Total lung capacity: 86 % of predicted at 5.78 L Residual volume: 90 % of predicted at 2.11 L Slow vital capacity: 85 % of predicted at 3.67 L Expiratory reserve volume: 0 % of predicted at 0 L Diffusion capacity: Normal Impression: No obstructive or restrictive ventilatory defect. No bronchodilator response. Decreased expiratory reserve volume suggests extrathoracic restriction likely secondary to abdominal obesity. MTDD
--- OUTSIDE RECORDS SUMMARY | 2025-08-21 15:36 | XMS_ITS | Encounter Summary ---
Author Organization [facility] Address [address] [place] [address] [place] [address] Phone Care Team Providers Care Sample Mounter Name Role Phone Van Mckeon Primary Care Provider [phone] Encounter Details Date Type Department Care Team (Late st Contact Info) Description 08/28/2017 Transcribe Orders [address] [address] Tashi Hong MD [address] [place] [address] [phone] Encounter for hydration prior to CT scan [...] Procedure Name Priority Date/Time Associated Diagnosis Comments CREATININE WITH ESTIMATED GLOMERULAR FILTRATION RATE (EGFR) Routine 08/28/2017 9:22 AM EST Encounter for hydration prior to CT scan BUN Routine 08/28/2017 9:22 AM EST Encounter for hydration prior to CT scan documented in this encounter Results * Creatinine/eGFR (08/28/2017 9:22 AM EST) CREATININE 0.70 0.5 - 1.5 mg/dL [facility] EGFR >60 >60 mL/min/1.7 3m2 [facility] Comment:Abnormal if <60. If patient is -Russian, multiply the result by 1.21. Blood 08/28/2017 9:22 AM EST 08/28/2017 9:26 AM EST Tashi Hong MD LAB BLOOD BKR ORDERABLES Final Result Performing Organization Address City/[facility]/ZIP Co de Phone Number [address] [address] * BUN (08/28/2017 9:22 AM EST) BUN 11 6 - 19 mg/dL [facility] Blood 08/28/2017 9:22 AM EST 08/28/2017 9:26 AM EST Tashi Hong MD LAB BLOOD BKR ORDERABLES Final Result Performing Organization Address [facility] Co de Phone Number [address] [address] documented in this encounter Visit Diagnoses Diagnosis Encounter for hydration prior to CT scan- Primary documented in this encounter Additional Health Concerns Infection Onset Date Last Indicated Resolved Time CoV-Risk 10/13/2024 10/13/2024 10/24/2024 1:24 AM EST documented as of this encounter Care Teams Sample Mounter Relationship Specialty Start Date End Date Van Mckeon DO [email or web address] PCP - General 07/16/17 documented as of this encounter Additional Source Comments The information contained in this document represents components of the legal health record. It is not the complete legal health record.[facility]
--- OUTSIDE RECORDS SUMMARY | 2025-08-21 15:37 | XMS_ITS | Clinical Summary ---
Author Organization [facility] Address [address] [facility] [address] [place] [address] Phone Care Team Providers Care Mule Driver Name Role Phone Van Mckeon Primary Care Provider [phone] Allergies No known active allergies Medications Medication-Free [...] this topic Medical Devices Implanted Type Area Stockfeed Miller Device Identifier Shelf Expiration Date Model / [...] EST) CREATININE 0.70 0.5 - 1.5 mg/dL [facility] EGFR >60 >60 mL/min/1.7 3m2 [facility] Comment:Abnormal if <60. If patient is -Yemeni, multiply the result by 1.21. Blood 08/28/2017 9:22 AM EST 08/28/2017 9:26 AM EST us Tashi Hong MD LAB BLOOD BKR ORDERABLES Final Result [address] [address] from Last 3 Months or Most Recently Relevant to Health Maintenance Insurance MEDICARE PPO BLUE REPLACEMENT MEDICARE PPO BLUE REPLACEMENT MEDICARE PPO BLUE REPLACEMENT MEDICARE PPO BLUE REPLACEMENT MEDICARE PPO BLUE REPLACEMENT MEDICARE PPO [place]UE [place] BLUE REPLACEMENT Care Teams Mule Driver Relationship Specialty Start Date End Date Van Mckeon DO PCP - General 07/16/17 Additional Source Comments The information contained in this document represents components of the legal health record. It is not the complete legal health record.[facility]
--- OUTSIDE RECORDS SUMMARY | 2025-08-21 15:38 | XMS_ITS | Encounter Summary ---
Author Organization [facility] Address [address] [address] Phone Care Team Providers Care Warrant Clerk Name Role Phone Van Mckeon DO Primary Care Provider [phone] Reason for Referral * Physical Therapy (Routine) - Closed Specialty Diagnoses / Procedures Referred By Contac t Referred To Contact Physical Therapy Diagnoses Encounter for rehabilitation System, Provider Not In, PhD [id number] [place] [address] [address] [place] [address] Phone: tel: Referral ID Status Reason Start Date Expiration Date Visits Re quested Visits Authorized [id number] Closed 07/29/2018 09/30/2018 92 92 Encounter Details Date Type Department Care Team (Late st Contact Info) Description 06/27/2018 Transcribe Orders [facility] [address] [place] [address] Van Mckeon DO [address] [facility] [place] [address] Encounter for rehabilitation (Primary Dx) Social History [...] Diagnoses Orde r Schedule Ambulatory referral to [facility] Physical Therapy Outpatient Referral Routine Encounter for rehabilitation Ordered: 06/27/2018 documented as of this encounter Visit Diagnoses Diagnosis Encounter for rehabilitation- Primary documented in this encounter Additional Health Concerns Infection Onset Date Last Indicated Resolved Time CoV-Risk 10/13/2024 10/13/2024 10/24/2024 1:24 AM EST documented as of this encounter Care Teams Warrant Clerk Relationship Specialty Start Date End Date Van Mckeon DO [email or web address] PCP - General 07/16/17 documented as of this encounter Additional Source Comments The information contained in this document represents components of the legal health record. It is not the complete legal health record.[facility]
--- OUTSIDE RECORDS SUMMARY | 2025-08-21 15:38 | XMS_ITS | Continuity of Care Document ---
Author Organization [facility], [facility] Address [address] [facility] [place] [address] [place] [address] Assessment Encounter Date Assessment Date Assessment LastModified by Organization Details LastModified Time 07/08/2025 07/08/2025 [id number] [place] [id number] (SURG PHYSICIAN ASST) MDM MODERATE MUST MEET 2 OUT OF [...] EACH ELEMENT THAT IS COVERED Not available 07/08/2025 15:00:25 Plan of Treatment Reminders Order Date Submit Date Provider Last Modified By Organization Details Last Modified Time Details Appointments FOLLOW UP 15 2025 09:00A M DR PRESSLEY Not available Not available Not available ANNUAL EXAM 2025 09:30A M DR PRESSLEY Not available Not available Not available Lab testoste itz, total, serum 2024 025 [facility], [address] [place] [address], [place], [address], 07/16/2025 14:25:17 Referral None recorded . Procedures None recorded . Surgeries None recorded . Imaging None recorded . Medication Orders None recorded . Patient TargetsNo targets recorded. Patient Instructions Encounter Date Encounter Id Patient Instructions Last Modified By Organization Details Last Modified Time 07/08/2025 [id number] cervical disc disease: care instructions Not available 07/08/2025 15:07:47 Reason for Referral None Reported. Results Created Date Observation Date Name Description Value Unit Range Abnormal Flag Note LastModifiedBy Organization Detail LastModifiedTime Result Notes None recorded. Problems Name Problem SNOMED Code Status Onset Date Resolution Date Notes Provider Name and Address Organization Details Recorded Time Peripher al vascular disease 638552562 Active 2017 Not Available [facility] 2 18:09:04 Osteoart hritis 329593657 Active 2017 bilatera l knee Not Available [facility] 2 18:09:04 Degenera tion of cervical interver tebral disc 98677763 Active 2017 Van Pressley DO [address] [place] [address], [address], [facility] 5 13:55:30 Hyperten sive disorder 57437825 Active 2017 Van Pressley, [address] [place] [address], [address], [facility] 5 15:02:03 Degenera tion of lumbar interver tebral disc 78466473 Active 2017 Not Available [facility] 2 18:09:04 Hypercho lesterol emia 48996048 Active 2017 Not Available [facility] 2 18:09:04 History of left hip replacem ent 7255073723 805521 Active 2017 Not Available [facility] 2 18:09:04 History of right hip replacem ent 5273152655 428390 Active 2017 Not Available [facility] 2 18:09:04 Bursitis caused by bacteria l infectio n 271378749 Active 2017 Not Available [facility] 2 18:09:04 Iliofemo ral deep vein thrombos is 754261754 Active 2017 2018 Not Available [facility] 2 18:09:04 Hyponatr emia 41204963 Active 2017 Not Available [facility] 2 18:09:04 Hypokale billy 20502084 Active 2017 Not Available [facility] 2 18:09:04 Insomnia 410562085 Active 2017 Not Available [facility] 2 18:09:04 Depressi ve disorder 06911946 Active 2017 Not Available [facility] 2 18:09:04 Esophagi tis 49792669 Active 2017 Not Available [facility] 2 18:09:04 Benign esophage al strictur e 507694642 Active 2017 Not Available [facility] 2 18:09:04 Osteoart hritis of knee 082326294 Completed 201704/24/2018 Van Pressley DO [address] [place], [address], [facility] 8 10:02:39 Replacem ent of bilatera l knee joints Active 2017 Not Available [facility] 2 18:09:04 Diarrhea 80308430 Active 2021 Not Available [facility] 2 18:09:04 Gastroes ophageal reflux disease 031470700 Active 2021 Not Available [facility] 2 18:09:04 Calcific coronary arterios clerosis 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 2022 Van Pressley DO [address] [place], [address], [facility] 3 22:51:44 Spasm 92467468 Active 2023 KRISTEN BURGESS [address] [place], [address], [facility] 4 14:02:57 Hemochro matosis 696837218 Active 2023 KRISTEN BURGESS [address] [place], [address], [facility] 4 12:52:14 Allergic rhinitis 86593643 Active 2023 Van Pressley, DO [address] [place], [address], [facility] 4 15:31:14 Erectile dysfunct ion 887857262 Active 2023 Van Pressley, DO [address] [place] [address], [address], [facility] 4 15:37:14 Hypotest osteroni sm 1291584333 104 Active 2023 Van Pressley, DO [address] [place] [address], [address], [facility] 5 10:00:06 Testoste itz level below referenc e range 668848597 Active 2023 KRISTEN BURGESS [address] [place] [address], [address], [facility] 4 12:02:42 Pneumoni tis 043010022 Active 2024 Van Pressley, DO [address] [place] [address], [address], [facility] 5 12:11:36 Cough 06321320 Active 2024 Van Pressley, DO [address] [place] [address], [address], [facility] 5 14:45:07 Dyspnea 515358001 Active 2024 Van Pressley, DO [address] [place] [address], [address], [facility] 5 10:23:07 Atypical chest pain 598415059 Active 2024 Van Pressley, DO [address] [place] [address], [address], [facility] 5 10:24:37 Moderate mitral valve stenosis 234034037 Active 2024 Van Pressley, DO [address] [place], [address], [facility] 5 13:40:45 Left atrial dilatati on 415043049 Active 2024 Van Pressley, DO [address] [place], [address], [facility] 5 13:41:04 Diastoli c dysfunct ion 0108211 Active 2024 Van Pressley, DO [address] [place], [address], [facility] 5 13:42:27 Change in voice 953759306 Active 2024 Van Pressley, DO [address] [place], [address], [facility] 5 13:51:46 Unexplai buck chronic cough Active 2024 Van Pressley, DO [address] [place], [address], [facility] 5 10:02:29 Problem Notes None recorded. Procedures Surgical History Date Name Laterality Status Provider Name and Address Organization Details Recorded Time 0 Cerumen Removal completed KRISTEN BURGESS [address] [place] [address], [address], [facility] 08/16/2020 15:18:04 Imaging Results None recorded. Procedure [...] NEEDED FOR 7 DAYS, FOR CERVICAL PAIN. 07/08 completed Not Available Not Available Not Available meloxicam 15 mg tablet 09/18 completed [...] losartan 100 mg-hydrochl orothiazide 25 mg tablet Take 1 tablet every day by oral route for 30 days. 2024 active Not Available Not Available Not Avai lable hydromorpho ne 2 mg tablet 04/24 completed [...] mass index (BMI) Body weight Oxygen saturation Heart rate Systolic And Diastolic Provider Name and Address Organization Details Last Updated DateTime 5 172.72 cm 36.1 kg/m2 845438. 11 g 97 % 76 /min 134/68 mm[Hg] [facility] 5 14:48:23 Social History Question Answer Notes LastModified by Organizat ion Details LastModified Time Tobacco Smoking Status Former Smoker Not Available [facility] 08/03/2020 03:36:24 What Was The Date Of Your Most Recent Tobacco Screening? 07/08/2025 [email or web address] Information not available 07/08/2025 Sex: Unknown Functional Status None recorded. Mental Status None recorded. Family History Nothing Reported. Medical History No medical history recorded. Immunizations Vaccine Type Date Status Note Provider Nam e and Address Organization Details Recorded Time Influenza, split virus, quadrivalent, preservative 8 completed Not Available [facility] 08/11/2022 18:09:05 Influenza, split virus, quadrivalent, preservative 1 completed Not Available [facility] 08/11/2022 18:09:05 COVID-19, mRNA, LNP-S, PF, 30 mcg/0.3 mL dose 2 completed Not Available [facility] 08/11/2022 18:09:05 COVID-19, mRNA, LNP-S, PF, 30 mcg/0.3 mL dose 1 completed Not Available [facility] 08/11/2022 18:09:05 pneumococcal polysaccharide PPV23 7 completed Not Available [facility] 08/11/2022 18:09:05 Pneumococcal conjugate PCV 13 9 completed Not Available [facility] 08/11/2022 18:09:05 zoster live 9 completed Not Available [facility] 08/11/2022 18:09:05 Influenza, split virus, quadrivalent, preservative 9 completed Not Available [facility] 08/11/2022 18:09:05 Influenza, split virus, quadrivalent, preservative 0 completed Not Available [facility] 08/11/2022 18:09:05 COVID-19, mRNA, LNP-S, PF, 30 mcg/0.3 mL dose 1 completed Not Available [facility] 08/11/2022 18:09:05 COVID-19, mRNA, LNP-S, PF, 30 mcg/0.3 mL dose 1 completed Not Available [facility] 08/11/2022 18:09:05 Past Encounters Encounter ID Performer Location Encounter Start Date Encounter Closed Date Diagnosis/Indication Diagnosis SNOMED-CT Code Diagnosis ICD10 Code Diagnosis IMO Codes Diagnosis Note [id number] Van Pressley, [facility] [address] [facility] [address] 07/08/2025 14:22:33 07/08/2025 15:40:47 Depression screening 075115623 Z13.31 neg Hypertensive disorder 38 140273 I10 stable and doing good overall Change in voice 15030545 5 R49.9 879557 stop the lisinopril call in one week and we will refer to ent Degenerati on of cervical intervertebral disc 96396317 M50.30 43601 prior has now progressed to complete disabling pain hurts daily all night unable to do certain tasks or activities so he is now interested in pain management and we will refer Hypotestosteronism 77310 08236 104 E34.9 594947 waiting for lab Health Concerns Section Related Observation LastModified by Organization Detai ls LastModified Time None Recorded Concern Status LastModified by Organization Details LastModified Time None Recorded Payers Encounter Date Sequence Insurance Name Policy Number Policy Phipps Covered Member ID Phipps Member ID Guarantor Name 07/08/2025 1 [place] (MEDICARE REPLACEMENT PPO) [id number] Lorenzo White [id number] Lorenzo White Notes Date Note Type Note Provider Name and Address Organization Details Recorded Time 5 text/htm l Care Management - HypertensionReported by PatientHPIFor self care, patient reportsnot under emotional stress. For severity, patient reportssymptoms are improvinganddoes not interfere with daily activities. For associated symptoms, patient reportsno dizziness,no lightheadedness,no chest pain,no shortness of breath,no palpitations,no edema,no calf muscle cramps,no blurred vision,no confusion,no headaches, andno fatigue.still has prob with voice hoarsenessalso PFT is not until end as noted in the HPI Van Pressley, DO [address] [facility], [place], [address], [facility] 07/08/2025 15:08:33
--- OUTSIDE RECORDS SUMMARY | 2025-08-21 15:38 | XMS_ITS | Encounter Summary ---
Author Organization [facility] Address [address] [facility] [address] [place] [address] Phone Care Team Providers Care Tapper Operator Name Role Phone Van Mckeon DO Primary Care Provider [phone] Encounter Details Date Type Department Care Team (Late st Contact Info) Description 09/25/2017 Documentation [facility] [address] [place] [address] Gretchen Vang, PT [email or web address] Social History Tobacco Use Types Packs/Day Years [...] documented as of this encounter Care Teams Tapper Operator Relationship Specialty Start Date End Date Van Mckeno DO PCP - General 07/16/17 documented as of this encounter Additional Source Comments The information contained in this document represents components of the legal health record. It is not the complete legal health record.[facility]
--- OUTSIDE RECORDS SUMMARY | 2025-08-21 15:38 | XMS_ITS | Encounter Summary ---
Author Organization [facility] Address [address] [address] Phone Care Team Providers Care Hand Tile Maker Name Role Phone Van Mckeon Gurpreet PEREIRA Primary Care Provider [phone] Reason for Referral * Physical Therapy (Routine) - Closed Specialty Diagnoses / Procedures Referred By Berhane t Referred To Contact Physical Therapy Diagnoses Encounter for rehabilitation System, Provider Not In, PhD [address] [place] [address] Phone: tel: Referral ID Status Reason Start Date Expiration Date Visits Re quested Visits Authorized [id number] Closed 10/01/2017 09/30/2018 99 99 Encounter Details Date Type Department Care Team (Latest Contact Info) Description 08/16/2017 Transcribe Orders [facility] [address] [place] [address] Ranjeet Jett MD [address] [place] [address] Encounter for rehabilitation (Primary Dx) Social [...] Diagnoses Orde r Schedule Ambulatory referral to [facility] Physical Therapy Outpatient Referral Routine Encounter for rehabilitation Ordered: 08/16/2017 documented as of this encounter Visit Diagnoses Diagnosis Encounter for rehabilitation- Primary documented in this encounter Additional Health Concerns Infection Onset Date Last Indicated Resolved Time CoV-Risk 10/13/2024 10/13/2024 10/24/2024 1:24 AM EST documented as of this encounter Care Teams Hand Tile Maker Relationship Specialty Start Date End Date Van Mckeon DO [email or web address] PCP - General 07/16/17 documented as of this encounter Additional Source Comments The information contained in this document represents components of the legal health record. It is not the complete legal health record.[facility]
--- OUTSIDE RECORDS SUMMARY | 2025-08-21 15:38 | XMS_ITS | Encounter Summary ---
Author Organization [facility] Address [address] [facility] [address] [place] [address] Phone Care Team Providers Care Bistro Attendant Name Role Phone Van Mckeon DO Primary Care Provider [phone] Encounter Details Date Type Department Care Team (Late st Contact Info) Description 05/21/2020 Procedure Pass [facility] Endoscopy Admitting Dept Virtual Department [address] [place] [address] Social History Tobacco Use Types Packs/Day Years [...] documented as of this encounter Care Teams Bistro Attendant Relationship Specialty Start Date End Date Van Mckeon DO [email or web address] PCP - General 07/16/17 documented as of this encounter Additional Source Comments The information contained in this document represents components of the legal health record. It is not the complete legal health record.[facility]
--- OUTSIDE RECORDS SUMMARY | 2025-08-21 15:38 | XMS_ITS | Encounter Summary ---
Author Organization [facility] Address [address] [place] [address] Phone Care Team Providers Care Chute Builder Name Role Phone Van Mckeon DO Primary Care Provider [phone] Encounter Details Date Type Department Care Team (Latest Contact Info) Description 08/15/2021 Transcribe Orders Virtual Department [address] [place] [address] Gillian Vernon PA [address] [place] [address] [place] [address] Diarrhea, unspecified type (Primary Dx) Social History [...] documented as of this encounter Care Teams Chute Builder Relationship Specialty Start Date End Date Van Mckeon DO PCP - General 07/16/17 documented as of this encounter Additional Source Comments The information contained in this document represents components of the legal health record. It is not the complete legal health record.[facility]
--- OUTSIDE RECORDS SUMMARY | 2025-08-21 15:38 | XMS_ITS | Data Portability ---
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 Not available 12/05/2024 10:21:02 04/20/2025 04/20/2025 [id number] [place] [address] (MECHANICAL SYSTEMS DESIGNER) MDM MODERATE MUST MEET 2 OUT OF [...] promote healthy living. Not available 05/18/2025 09:50:22 07/08/2025 07/08/2025 [id number] [place] [address] (MECHANICAL SYSTEMS DESIGNER) MDM MODERATE MUST MEET 2 OUT OF [...] Not available Not available Not available Lab testoster one, total, serum 2024 025 [facility], [address] [place] [address], [id number], 07/16/2025 14:25:17 CBC w/ auto diff 2024 025 [facility], [address] [place] [address], [id number], 05/18/2025 09:58:34 CMP, serum or plasma 2024 025 [facility], [address] [place] [address], [id number], 05/18/2025 09:58:34 testoster one, free + total, serum 2024 025 [facility], [address] [place] [address], [id number], 06/15/2025 11:25:04 shbg (sex hormone-b inding globulin) , serum 2024 025 [facility], [address] [place] [address], [id number], 05/18/2025 10:02:07 lh + FSH, serum 2024 025 [facility], [address] [place] [address], [address], 06/11/2025 09:47:41 lipid panel, blood 2024 025 [facility], [address] [place] [address], [id number], 05/18/2025 09:58:34 hemoglobi n, gastroint estinal, stool 2024 025 [facility], [address] [place] [address], [address], 05/18/2025 09:58:34 lipid panel, blood 2024 025 [facility], [address] [place] [address], [id number], 04/20/2025 14:03:19 CMP, serum or plasma 2024 025 [facility], [address] [place] [address], [address], 04/20/2025 14:56:26 PSA, serum or plasma 2024 025 [facility], [address] [place] [address], [id number], 04/20/2025 14:03:19 lipid panel, blood 2024 025 [facility], [address] [place] [address], [address], 12/05/2024 10:32:20 CMP, serum or plasma 2024 025 [facility], [address] [place] [address], [id number], 12/05/2024 10:32:20 CBC 2024 025 [facility], [address] [place] [address], [id number], 12/05/2024 10:32:20 PSA, serum or plasma 2024 025 [facility], [address] [place] [address] [place], [address], 12/05/2024 10:32:20 Referral otolaryng ologist referral 2024 025 [facility], [address] [place], [address], 04/21/2025 09:24:38 Procedures None recorded. Surgeries None recorded. Imaging US, echocardi ogram 2024 025 [facility], [address] [facility], [place] [address], [place], [address], 12/19/2024 09:11:06 Medication Orders losartan 100 mg-hydroc hlorothia zide 25 mg tablet 2024 025 [facility], [address] [place], [address], 08/19/2025 12:27:51 hydrocodo ne 5 mg-acetam inophen 325 mg tablet 2024 025 [facility]acy #2025, [address] [place], [address], 07/08/2025 14:46:07 azithromy janice 250 mg tablet 2024 025 [facility] #2025, [address] [place], [address], 12/05/2024 09:54:44 hydrocodo ne 10 mg-chlorp heniramin e 8 mg/5 mL oral susp extend.re l 12hr 2024 025 [facility]acy #2025, [address] [place], [address], 12/05/2024 09:54:54 Patient TargetsNo targets recorded. Patient Instructions Encounter Date Encounter Id Patient Instructions Last Modified By Organization Details Last Modified Time 12/05/2024 [id number] Peripheral Arterial Disease (PAD): [facility] Not available 12/05/2024 10:31:06 pulse oximetry* Not available 12/05/2024 10:31:06 05/18/2025 [id number] advance care planning: care instructions Not available 05/18/2025 09:57:09 Discussed and explained advance directives such as standard forms to the . Face to face discussion lasted for a duration of ___ minutes. 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 [facility] Referrals Heart & Vascular [address] [place], [address], 04/26/2025 22:00:54 Result Notes None recorded. Problems Name Problem SNOMED Code Status Onset Date Resolution Date Notes Provider Name and Address Organization Details Recorded Time Peripher al vascular disease 558438395 Active 2017 Not Available [facility] 18:09:04 Osteoart hritis 972490493 Active 2017 bilatera l knee Not Available [facility] 18:09:04 Degenera tion of cervical interver tebral disc 15001366 Active 2017 Van Pressley, DO [address] [place], [address], [facility] 5 13:55:30 Hyperten sive disorder 09667639 Active 2017 Van Pressley, DO [address] [place], [address], [facility] 5 15:02:03 Degenera tion of lumbar interver tebral disc 15277520 Active 2017 Not Available [facility] 2 18:09:04 Hypercho lesterol emia 27793092 Active 2017 Not Available [facility] 2 18:09:04 History of left hip replacem ent 0742311560 535341 Active 2017 Not Available [facility] 2 18:09:04 History of right hip replacem ent 4709135588 296423 Active 2017 Not Available [facility] 2 18:09:04 Bursitis caused by bacteria l infectio n 860756369 Active 2017 Not Available [facility] 2 18:09:04 Iliofemo ral deep vein thrombos is 013360939 Active 2017 2018 Not Available [facility] 2 18:09:04 Hyponatr emia 55491613 Active 2017 Not Available [facility] 2 18:09:04 Hypokale billy 73882521 Active 2017 Not Available [facility] 2 18:09:04 Insomnia 477909813 Active 2017 Not Available [facility] 2 18:09:04 Depressi ve disorder 66722260 Active 2017 Not Available [facility] 2 18:09:04 Esophagi tis 17557279 Active 2017 Not Available [facility] 2 18:09:04 Benign esophage al strictur e 881893749 Active 2017 Not Available [facility] 2 18:09:04 Osteoart hritis of knee 585787586 Completed 201704/24/2018 Van Pressley, [address] [place], [address], [facility] 8 10:02:39 Replacem ent of bilatera l knee joints Active 2017 Not Available [facility] 2 18:09:04 Diarrhea 13680866 Active 2021 Not Available [facility] 2 18:09:04 Gastroes ophageal reflux disease 396019932 Active 2021 Not Available [facility] 2 18:09:04 Calcific coronary arterios clerosis 85375684 Active 2022 Van Pressley DO [address] [place] [address], [address], [facility] 3 22:51:44 Spasm 07846263 Active 2023 KRISTEN BURGESS [address] [place] [address], [address], [facility] 4 14:02:57 Hemochro matosis 306300155 Active 2023 KRISTEN BURGESS [address] [place] [address], [address], [facility] 4 12:52:14 Allergic rhinitis 57457153 Active 2023 Van Pressley DO [address] [place] [address], [address], [facility] 4 15:31:14 Erectile dysfunct ion 472409787 Active 2023 Van Pressley DO [address] [place] [address], [address], [facility] 4 15:37:14 Hypotest osteroni sm 6779347994 104 Active 2023 Van Pressley DO [address] [place] [address], [address], [facility] 5 10:00:06 Testoste itz level below referenc e range 706778445 Active 2023 KRISTEN BURGESS [address] [place] [address], [address], [facility] 4 12:02:42 Pneumoni tis 724416478 Active 2024 Van Pressley DO [address] [place] [address], [address], [facility] 5 12:11:36 Cough 51205894 Active 2024 Van Pressley DO [address] [place] [address], [address], [facility] 5 14:45:07 Dyspnea 923992728 Active 2024 Van Pressley DO [address] [place] [address], [address], [facility] 5 10:23:07 Atypical chest pain 377612639 Active 2024 Van Pressley DO [address] [place] [address], [address], [facility] 5 10:24:37 Moderate mitral valve stenosis 018399672 Active 2024 Van Pressley DO [address] [place] [address], [address], [facility] 5 13:40:45 Left atrial dilatati on 356448459 Active 2024 Van Pressley DO [address] [place] [address], [address], [facility] 5 13:41:04 Diastoli c dysfunct ion 2266502 Active 2024 aVn Pressley DO [address] [place] [address], [address], [facility] 5 13:42:27 Change in voice 368410426 Active 2024 Van Pressley DO [address] [place] [address], [address], [facility] 5 13:51:46 Unexplai buck chronic cough Active 2024 Van GurpreetCesar Averyjim, [address] [place], [address], [facility] 5 10:02:29 Problem Notes None recorded. Procedures Surgical History Date Name Laterality Status Provider Name and Address Organization Details Recorded Time 0 Cerumen Removal completed KRISTEN BURGESS [address] [place], [address], [facility] 08/16/2020 15:18:04 Imaging Results None [...] (BMI) Body weight Heart rate Oxygen saturation Systolic And Diastolic Provider Name and Address Organization Details Last Updated DateTime 5 172.72 cm 34.8 kg/m2 754648. 65 g 76 /min 97 % 138/70 mm[Hg] Shan Addison [facility] 5 11:48:50 Date Recorded Body height Body mass index (BMI) Body weight Heart rate Oxygen saturation Systolic And Diastolic Provider Name and Address Organization Details Last Updated DateTime 5 172.72 cm 35.2 kg/m2 171895. 63 g 68 /min 98 % 138/88 mm[Hg] Zaida Boone [facility] 5 09:59:50 Date Recorded Body height Body mass index (BMI) Body weight Oxygen saturation Heart rate Systolic And Diastolic Provider Name and Address Organization Details Last Updated DateTime 5 172.72 cm 35 kg/m2 853956. 25 g 96 % 70 /min 128/74 mm[Hg] [facility] 5 13:30:40 Date Recorded Body height Body mass index (BMI) Body weight Oxygen saturation Heart rate Systolic And Diastolic Provider Name and Address Organization Details Last Updated DateTime 5 172.72 cm 35.2 kg/m2 991570. 99 g 96 % 78 /min 136/68 mm[Hg] SEE [facility] 5 09:26:53 Date Recorded Body height Body mass index (BMI) Body weight Oxygen saturation Heart rate Systolic And Diastolic Provider Name and Address Organization Details Last Updated DateTime 5 172.72 cm 36.1 kg/m2 584267. 11 g 97 % 76 /min 134/68 mm[Hg] [facility] 5 14:48:23 Social History Question Answer Notes LastModified by Organizat ion Details LastModified Time Tobacco Smoking Status Former Smoker Not Available [facility] 08/03/2020 03:36:24 What Was The Date Of Your Most Recent Tobacco Screening? 07/08/2025 Information not available 07/08/2025 Sex: Unknown Functional Status None recorded. Mental Status None recorded. Family History Nothing Reported. Medical History No medical history recorded. Immunizations Vaccine Type Date Status Note Provider Nam e and Address Organization Details Recorded Time Influenza, split virus, quadrivalent, preservative 8 completed Not Available [facility] 08/11/2022 18:09:05 Influenza, split virus, quadrivalent, preservative 1 completed Not Available [facility] 08/11/2022 18:09:05 COVID-19, mRNA, LNP-S, PF, 30 mcg/0.3 mL dose 2 completed Not Available [facility] 08/11/2022 18:09:05 COVID-19, mRNA, LNP-S, PF, 30 mcg/0.3 mL dose 1 completed Not Available [facility] 08/11/2022 18:09:05 pneumococcal polysaccharide PPV23 7 completed Not Available [facility] 08/11/2022 18:09:05 Pneumococcal conjugate PCV 13 9 completed Not Available [facility] 08/11/2022 18:09:05 zoster live 9 completed Not Available [facility] 08/11/2022 18:09:05 Influenza, split virus, quadrivalent, preservative 9 completed Not Available [facility] 08/11/2022 18:09:05 Influenza, split virus, quadrivalent, preservative 0 completed Not Available [facility] 08/11/2022 18:09:05 COVID-19, mRNA, LNP-S, PF, 30 mcg/0.3 mL dose 1 completed Not Available [facility] 08/11/2022 18:09:05 COVID-19, mRNA, LNP-S, PF, 30 mcg/0.3 mL dose 1 completed Not Available [facility] 08/11/2022 18:09:05 Past Encounters Encounter ID Performer Location Encounter Start Date Encounter Closed Date Diagnosis/Indication Diagnosis SNOMED-CT Code Diagnosis ICD10 Code Diagnosis IMO Codes Diagnosis Note [id number] Van Pressley [facility] [address] [facility],[place] [address] 04/24/2018 09:26:52 04/24/2018 14:05:13 Hypertensive disorder 05520929 I10 doing well overall states that knee has caused increased stresss Osteoarthr itis of knee 267692736 M17.[address] vinson may 30 Osteoarthritis 186737156 M19.90 will give him rx to hold in case of severe pain [id number] Vna Pressley DO [facility] [address] [facility], [place] [address] 09/18/2018 09:13:39 09/18/2018 11:48:30 Hypercholesterolemia 46258899 E78.00 will need to have his blood work Hypertensive disorder 38 524354 I10 doing well overall states that knee has caused increased stresss Osteoarthritis 352209057 M19.90 will give him rx to hold in case of severe pain [id number] Van Pressley [facility] [address] [facility] [address] [address] 11/04/2018 09:56:07 11/04/2018 14:08:21 Cellulitis 454561278 L03.90 will go ahead and treat now elevate leg warm moist heat keep dry skin moisturize d [id number] Van Pressley [facility] [address] [facility],[place] [address] 08/26/2019 10:19:56 08/26/2019 10:52:10 Adult health examination 797441216 Z00.00 doing well except for these episodes of sudden sharp pain no pattern etc Peripheral vascular disease 285109267 I73.9 stable Degenerati on of cervical intervertebral disc 79981905 M50.30 stable thus far Impaired f asting glycemia 224308091 R73.01 as noted fbs of 112 [id number] Van [facility] [address] [facility],[place] [address] 08/06/2020 13:43:10 08/06/2020 14:24:20 Hypertensive disorder 50039844 I10 doing well overall states that knee has caused increased stresss Hypercholesterolemia 136 20787 E78.00 will need to have his blood work Degenerati on of cervical intervertebral disc 61566840 M50.30 has now progressed to complete disabling pain hurts daily all night unable to do certain tasks or activities we will need to refer to neurosurg but needs an mri first Bursitis c aused by bacterial infection 286877625 M71.10 seems stable and followed up with surgery [id number] Van Pressley DO [facility] [address] [facility],[place] [address] 08/16/2020 14:26:25 08/16/2020 16:07:57 Acute otitis media 3808076 H65.02 left ear was cleaned started on abx Hypertensive disorder 38 715052 I10 [place] [id number] Van Pressley [facility] [address] [facility] [address] [address] 11/02/2020 11:26:50 11/02/2020 15:37:00 Degeneration of cervical intervertebral disc 60656996 M50.30 has now progressed to complete disabling pain hurts daily all night unable to do certain tasks or activities he will be seeing a neurosurg from [facility] next week mri has been done but we dont have the report await consult Hypertensive disorder 38 002590 I10 doing well overall states that his bps have been stable Esophagitis 58080339 K20 .90 stable no major issues cont with ppi H2 block when need [id number] Van Pressley [facility] [address] [facility], [facility] [place] [address] 01/24/2021 16:18:45 01/24/2021 17:05:17 Hypertensive disorder 80577336 I10 doing well overall states that his bps have been stable Hypercholesterolemia 136 95939 E78.00 will need to have his blood work and he never restarted his simvastati n back in jun after hospitaliz ation Ganglion c yst of right volar wrist 1135305543 9901888 M67.431 will need to refer Eczema of external auditory canal 52069550 H60.549 [id number] Van Pressley [facility] [address] [facility], [place] [address] 07/27/2021 15:43:42 07/27/2021 16:56:27 Hypertensive disorder 71149571 I10 doing well overall states that his bps have been stable Depressive disorder 3548 9007 F32.A stable Hypercholesterolemia 136 61643 E78.00 will need to have his blood work and he never restarted his simvastati n back in jun after hospitaliz ation Eczema of external auditory canal 95211169 H60.549 Hypokalemia 47227881 E87 .6 stable and we will follow Hyponatremia 59998173 E8 7.1 stable Peripheral vascular disease 873398550 I73.9 stable Ganglion c yst of left wrist 6466348236 25777 M67.432 [id number] Van Pressley [facility] [address] [facility] [address] 01/27/2022 09:06:16 01/27/2022 10:26:57 Hypercholesterolemia 40909181 E78.00 will need to have his blood work and he never restarted his simvastati n back in jun after hospitaliz ation Hypertensive disorder 38 984022 I10 doing well overall states that his bps have been stable Peripheral vascular disease 401564718 I73.9 stable Active or passive immunization 152872489 Z23 aware due for 2nd shingles shot and Tdap Diarrhea 47826928 R19.7 states that he has started on this and we will try some cholestyra mine [id number] Van Pressley [facility] [address] [facility] [place] [address] 08/09/2022 08:41:38 08/09/2022 13:39:57 Hypercholesterolemia 40962099 E78.00 will need to have his blood work and he never restarted his simvastati n back in jun after hospitaliz ation Hypertensive disorder 38 917905 I10 doing well overall states that his bps have been stable Advance care planning 71 5857231 Z71.89 done Abdominal aortic aneurysm screening 015266438 Z13.6 Hepatitis C screening 41 4195798 Z11.59 Active or passive immunization 238718870 Z23 patient advised he is due for flu, tdap, & shingles Gastroesop hageal reflux disease 246099870 K21.9 prob doesnt need we will try weanning off both meds famotidine fust stop and omeprazole week later Degenerati on of cervical intervertebral disc 89356388 M50.30 has now progressed to complete disabling pain hurts daily all night unable to do certain tasks or activities we will change amitript to trazodone then we will change the serttaline to duloxetine [id number] Van Pressley DO [facility] [address] [facility] [place] [address] 11/24/2022 10:09:56 11/24/2022 11:12:30 Hypertensive disorder 94493376 I10 doing well overall states that his bps have been stable Hypokalemia 20183003 E87 .6 stable and we will follow Hyponatremia 17130240 E8 7.1 stable Peripheral vascular disease 378650308 I73.9 stable Degenerati on of cervical intervertebral disc 52303497 M50.30 has now progressed to complete disabling pain hurts daily all night unable to do certain tasks or activities we will change amitript to trazodone then we will change the sertaline to duloxetine [id number] Van VázquezCesar Mike [facility] [address] [facility],[place] [address] 07/18/2023 09:40:53 07/18/2023 11:20:12 Calcific coronary arteriosclerosis 24183542 I25.84 high score but negative work up for signif cad had neg perfusion scan Diarrhea 29163465 R19.7 now resolved over time Hypertensive disorder 38 324954 I10 doing well overall states that his bps have been stable Degenerati on of cervical intervertebral disc 76672379 M50.30 has now progressed to complete disabling pain hurts daily all night unable to do certain tasks or activities so he is now interested in pain management and we will refer [id number] Van Olivia Pressley [facility] [address] [facility],[place] [address] 05/19/2024 15:03:39 05/19/2024 15:43:15 Hypercholesterolemia 05727058 E78.00 will need to have his blood work and he never restarted his simvastati n back in jun after hospitaliz ation Hypertensive disorder 38 139456 I10 doing well overall states that his bps have been stable Depression screening 171 819029 Z13.31 neg Degenerati on of cervical intervertebral disc 22913980 M50.30 has now progressed to complete disabling pain hurts daily all night unable to do certain tasks or activities so he is now interested in pain management and we will refer Allergic rhinitis 550240 04 J30.9 will try Erectile dysfunction 860 498024 F52.21 [id number] Van Pressley [facility] [address] [facility] [address] 11/11/2024 11:37:25 11/11/2024 12:43:36 Hypertensive disorder 33214076 I10 doing well overall states that his bps have been stable Pneumonitis 725771859 J1 8.9 [id number] Van Pressley [facility] [address] [facility],[place] [address] 12/05/2024 09:46:36 12/05/2024 10:36:21 Depression screening 511514725 Z13.31 neg Pneumonitis 791459268 J1 8.9 resolved but feeling windedbut relates that he feels his chest is heavy first thing every morning Hypertensive disorder 38 764962 I10 doing well overall states that his bps have been stable Hypercholesterolemia 136 27541 E78.00 will need to have his blood work and he never restarted his simvastati n back in jun after hospitaliz ation Peripheral vascular disease 811871662 I73.9 stable Acquired d ilatation of ascending aorta and aortic root 697567926 I77.810 will set up echo now chk mitral valve as well [id number] Van Pressley [facility] [address] [facility],[place] [address] 04/20/2025 13:17:52 04/20/2025 14:04:34 Depression screening 392014920 Z13.31 neg Degenerati on of cervical intervertebral disc 11989297 M50.30 99127 prior has now progressed to complete disabling pain hurts daily all night unable to do certain tasks or activities so he is now interested in pain management and we will refer Hypercholesterolemia 136 33387 E78.00 will need to have his blood work and he never restarted his simvastati n back in jun after hospitaliz ation Hypotestosteronism 66790 87909 104 R89.1 waiting for lab Change in voice [id number] 5 R49.9 647263 stop the lisinopril call in one week and we will refer to ent [id number] Van Pressley [facility] [address],[place] [address] 05/18/2025 09:20:47 05/18/2025 10:04:41 Screening for cardiovascular system disease [id number] Z13.6 doing well except for these episodes of sudden sharp pain no pattern etc Screening for malignant neoplasm of colon [id number] Z12.11 Depression screening 171 769201 Z13.31 neg Hypertensive disorder 38 795192 I10 doing well overall states that his bps have been stable but will change the lisinopril to losartan Hypotestosteronism 76916 69962 104 R89.1 E34.9 807422 waiting for lab General ex amination of patient [id number] Z00.01 [id number] doing well except for these episodes of sudden sharp pain in the neck ]relates he is still having sob and coughing and is driving him nuts he also stopped the lisinopril for a week and did not see any change with the coughno pattern etc [id number] Van Pressley DO [facility] [address],[place] [address] 07/08/2025 14:22:33 07/08/2025 15:40:47 Depression screening [id number] Z13.31 neg Hypertensive disorder 38 646816 I10 stable and doing good overall Change in voice [id number] 5 R49.9 870305 stop the lisinopril call in one week and we will refer to ent Degenerati on of cervical intervertebral disc 64035661 M50.30 52600 prior has now progressed to complete disabling pain hurts daily all night unable to do certain tasks or activities so he is now interested in pain management and we will refer Hypotestosteronism 96211 38117 104 E34.9 663176 waiting for lab Health Concerns Section Related Observation LastModified by Organization Detai ls LastModified Time None Recorded Concern Status LastModified by Organization Details LastModified Time None Recorded Advance Directives Directive None Recorded Payers Insurance Date Sequence Insurance Name Policy Number Policy Phipps Covered Member ID Phipps Member ID Guarantor Name 07/08/2025 1 [facility] MEDICARE PPO BLUE (MEDICARE REPLACEMENT PPO) [id number] Lorenzo White [id number] Lorenzo White Notes Date Note Type Note Provider Name and Address Organization Details Recorded Time 11/11/19 25 text/htm l ROS as noted in the HPI here for rechkdoing ok overall has been having a cough for several weeks since a viral infection 3 weeks ago Van Pressley DO [address], [place], [address], [facility] 11/11/2024 12:13:31 12/06/19 25 text/htm [...] her being in hospital with pneumonia Van Pressley DO [address] [place], [address], [facility] 12/05/2024 10:33:04 04/20/20 25 text/htm [...] and labdoing ok overall just back from [place] had a great time Van Pressley DO [address] [place], [address], [facility] 04/20/2025 13:59:07 05/18/20 25 text/htm [...] home.ROS as noted in the HPI Van Pressley DO [address] [place] [address], [phone], [facility] 05/18/2025 10:01:35 07/08/20 25 text/htm l Care Management - HypertensionReported by PatientHPIFor self care, patient reportsnot under emotional stress. For severity, patient reportssymptoms are improvinganddoes not interfere with daily activities. For associated symptoms, patient reportsno dizziness,no lightheadedness,no chest pain,no shortness of breath,no palpitations,no edema,no calf muscle cramps,no blurred vision,no confusion,no headaches, andno fatigue.still has prob with voice hoarsenessalso PFT is not until end augustROS as noted in the HPI Van Pressley DO [address] [place] [address], [phone], [facility] 07/08/2025 15:08:33
[2025-08-21 16:15] VITALS: PULSE 93
== END 2025-08-21 15:33 | disposition home or self-care (01) ==
LOC: HO.RESP 15:32
PROVIDERS: PCP Internal Medicine; Visit Provider Internal Medicine
DX: R05.3 Chronic cough (principal)
CPT/HCPCS: 94060; 94640; 94727; 94729

== ENCOUNTER → 2025-08-21 15:36 | Outpatient (BNV) | payer MEDICARE, SELFPAY | PROVIDERS: PCP Internal Medicine; Visit Provider Internal Medicine Pulmonary Disease | DX: R05.9 Cough, unspecified (principal) | CPT/HCPCS: 94060; 94727; 94729 ==